=== PATIENT | female | born 1990 ===

== ENCOUNTER 2019-12-24 13:19 | Outpatient (REF) | payer OTHER, SELFPAY | END 2019-12-24 13:20 | disposition home or self-care (01) | LOC: HO.LAB 13:19 | PROVIDERS: Visit Provider Internal Medicine | DX: Z20.828 Contact with and (suspected) exposure to other viral communicable diseases (principal) | CPT/HCPCS: 87635 ==

== ENCOUNTER 2020-03-02 09:42 | Outpatient (REF) | payer OTHER, SELFPAY ==
[2020-03-07 10:18] LABS: HPV mRNA E6/E7 rflx Not Detected (Not Detected)
== END 2020-03-02 09:43 | disposition home or self-care (01) ==
LOC: HO.LNP 09:42
PROVIDERS: PCP Internal Medicine; Visit Provider Advanced Practice Midwife
DX: Z12.4 Encounter for screening for malignant neoplasm of cervix (principal)
CPT/HCPCS: 87624; 88142

== ENCOUNTER 2020-03-03 10:45 | Outpatient (REF) | payer OTHER, SELFPAY | END 2020-03-03 10:46 | disposition home or self-care (01) | LOC: HO.LAB 10:45 | PROVIDERS: Visit Provider Advanced Practice Midwife | DX: Z13.89 Encounter for screening for other disorder (principal) ==

== ENCOUNTER 2020-05-25 09:46 | Outpatient (REF) | payer OTHER, SELFPAY | END 2020-05-25 09:47 | disposition home or self-care (01) | LOC: HO.LAB 09:46 | PROVIDERS: Visit Provider Internal Medicine | DX: Z20.822 Contact with and (suspected) exposure to COVID-19 (principal) | CPT/HCPCS: 36415; C9803; U0003; U0005 ==

== ENCOUNTER 2020-05-30 10:57 | Emergency (ER) | payer OTHER, SELFPAY ==
[2020-05-30 11:08] VITALS: BP 118/72; PULSE 87; RESP 16; TEMP 37.5; O2SAT 100; BMI 26.9
--- NOTE | 2020-05-30 11:42 | ED.URI ---
HPI - URI/Sore Throat General Chief Complaint: Upper Respiratory Symptoms Stated Complaint: headache Time Seen by Provider: 05/30/20 11:26 Source: patient Mode of arrival: ambulatory Limitations: no limitations History of Present Illness HPI Narrative: 29-year-old female presenting To the ED with complaints of intermittent headaches, chills with sore throat and body aches for the past 2 days worse today. Reports positive COVID exposure her mother and her cousin who tested positive. Denies any other symptoms complaints or concerns at this time. MD elicited complaint: sore throat Onset (ago): day(s) (Two days) Consistency: constant and progressively worsening Severity: mild Able to tolerate fluids by mouth: Yes Exacerbating factors: swallowing Relieving factors: nothing Context: sick contacts (Her cousin tested positive for COVID on 05/28/2020 and her mother is also positive with similar symptoms) Associated symptoms: myalgias and headache Treatments prior to arrival: none Related Data Previous Rx's Medication Instructions Recorded acetaminophen [Tylenol Extra 1,000 mg PO QID PRN #14 tab 05/30/20 Strength] azithromycin See Rx Instructions .ROUTE 05/30/20 .COMPLEX #6 tab cyclobenzaprine 10 mg PO Q8H #10 tab 05/30/20 ibuprofen 800 mg PO Q8H PRN #14 tab 05/30/20 Allergies Allergy/AdvReac Type Severity Reaction Status Date / Time No Known Allergies Allergy Verified 03/02/20 10:12 Review of Systems Review of Systems: Constitutional : + Chills, + Malaise, No Fever, No fatigue ENT/Mouth : + sore throat, No runny nose Eyes: No Discharge Cardiovascular : No Chest Pain, No SOB Respiratory : No Cough, No Sputum, No Wheezing, No Smoke Exposure, No Dyspnea Gastrointestinal : No Nausea, No Vomiting, No Diarrhea Genitourinary : No irregular bleeding, No Dysuria, No Urinary Frequency, No Hematuria, No Urinary Incontinence, No Urgency, No Flank Pain, Musculoskeletal : No Myalgia, no neck pain/stiffness, no back pain/stiffness Skin : No rash Neuro : + intermittent Headache Yes all other systems are reviewed and are negative [facility] Past Medical History Attestation statement: The following information was validated with the patient. Medical History Urge urinary incontinence Surgical History No history of previous surgery Family History Family History Mother Thyroid disease Maternal Grandmother Diabetes mellitus HTN (hypertension) Breast cancer Social History Social History Alcohol intake: current Alcohol intake frequency: holidays/special occasions only Smoking Status: Never smoker Advance Directives: No Advance Directives Information Provided: No Gender identity: female Physical Exam Vital Signs: Vital Signs: Last Vital Signs Temp 99.5 F 05/30/20 11:08 Pulse 87 05/30/20 11:08 Resp 16 05/30/20 11:08 BP 118/72 05/30/20 11:08 Pulse Ox 100 05/30/20 11:08 Body Mass Index 26.9 Vital signs have been reviewed as normal and appeared to be correct. Blood pressure normal. Heart rate normal. Respiration rate normal. Temperature normal. Oxygen saturation normal. Appearance: Alert. Oriented X3. No acute distress. Head: Normal external exam. Normocephalic. Atraumatic. Able to rotate head bilaterally. Eyes: PERRLA. EOMI. No nystagmus noted. Conjunctiva and sclera normal. Eyelids normal. Corneal reflex normal. ENT: EAC normal. TM's Normal. Hearing normal. Pharynx normal. Uvula midline. tongue midline. Moist mucous membranes. No trismus noted. No drooling noted. No muffled voice noted. Neck: Normal inspection. Neck supple. FROM. No adenopathy. Thyroid Normal. No meningeal signs. No neck mass noted. CVS: Normal heart rate and rhythm. Heart sound normal. No murmurs noted. Pulses normal throughout. Respiratory: No respiratory distress. Painless inspiration. Breath sounds normal. No wheezes/rales/rhonchi noted. Chest nontender. No accessory muscle usage noted or decreased air movement noted. Back: Full range of motion noted. Skin: Skin warm and dry. Normal skin color. Normal skin turgor. No rashes/lesions/lacerations noted. Extremities: Extremities exhibit normal range of motion. Extremities nontender. Able to shrug shoulders bilaterally and keep up against resistance. Neuro: Oriented X 3. No motor deficit. No sensory deficit. Reflexes normal. Moving all extremities. No focal motor deficits. Cranial nerves II-XI intact bilaterally. Facial strength normal. Normal cognition. Speech normal. Gait normal. Strength 5/5 throughout. No pronator drift. No tremor noted. No fasciculations noted. Muscle tone normal throughout. No asterixis noted. Course Course Course Narrative: 29-year-old female presenting with COVID like symptoms with positive exposures at home. Denies recent travel or any other symptoms. Will obtain COVID/RSV/flu swab and a rapid strep then DC home with instructions to return if any new or worsening symptoms and symptomatic treatment. No additional labs or imaging indicated at this time Patient understands agrees with this plan. MDM - URI/Sore Throat Medical Records Attestation: I reviewed the patient's medical records. Discharge Plan Discharge Clinical Impression: Upper respiratory infection Patient Disposition: Home, Self-Care Instructions: Pharyngitis (ED), Upper Respiratory Infection (ED), COVID-19 (Coronavirus Disease 2019) (ED) Additional Instructions: Based on your symptoms and history we have sent a COVID-19. Although your RESULT IS PENDING at this time. RESULTS should return within 2-4 hours. At this time you will be contacted with either NEGATIVE OR POSITIVE results. -Please wait until we contact you for your results. At this time you will be okay for discharge. Please plan for self quarantine for up to 14 days. Do not expose yourself to others. You may not go to work. If testing does come back negative you may return to activities as long as you are no longer having any symptoms for at least 3 days. Please continue to follow cold instructions and wash your hands frequently. You may take Tylenol as directed on the bottle for pain or fever. Patient seen in the emergency department on 05/30/2020 and should be excused from work until negative test results AND until 72 hours without any symptoms AND at least 10 days have passed since symptoms first appeared or since last exposure to COVID-19 positive patient CDC Guidelines for home isolation: - Stay away from others - WEAR A MASK if you are sick AND STAY HOME - Cover your mouth and nose with a tissue when you cough or sneeze. Dispose of tissues in a lined trash can and wash your hands immediately with soap and water for at least 20 seconds. If soap and water are not available, clean hands with alcohol-based hand timber incisor operator that contains at least 60% alcohol. - Clean your hands often with soap and water for at least 20 seconds - Avoid touching your eyes, nose and mouth with unwashed hands - Do not share dishes, drinking glasses, cups, eating utensils, towels, or bedding with other people in your home. After using these items, wash them thoroughly with soap and water or put in the freezer machine operator. - Clean high-touch surfaces in your isolation area ( sick room and bathroom) every day; let a caregiver clean and disinfect high-touch surfaces in other areas of the home. Clean the area or item with soap and water or another detergent if it is dirty. Then, use a household disinfectant. - Limit contact with pets and animals: If you must care for a pet, wash your hands before and after interacting with them). Prescriptions: New azithromycin 250 mg tablet See Rx Instructions .ROUTE .COMPLEX Qty: 6 RF: 0 ibuprofen 800 mg tablet 800 mg PO Q8H PRN (Reason: pain) Qty: 14 RF: 0 acetaminophen [Tylenol Extra Strength] 500 mg tablet 1,000 mg PO QID PRN (Reason: fever or pain) Qty: 14 RF: 0 cyclobenzaprine 10 mg tablet 10 mg PO Q8H Qty: 10 RF: 0 Referrals: Kimberley Linares MD [Primary Care Provider] - 2 days Stand Alone Forms: Work/School Release Print Language: Bol[place]ian
[2020-05-30] MEDS: Acetaminophen 325 MG TABLET 975 MG PO (12:07)
--- NOTE | 2020-05-30 12:10 | PC.NURSE ---
patient medicated per order
[2020-05-30 12:28] LABS: Influenza A PCR NEGATIVE (Negative); Influenza B PCR NEGATIVE (Negative); Resp Syncy Virus RNA Qual PCR NEGATIVE (Negative); SARS COV2 PCR INHOUSE POSITIVE (Negative)
== END 2020-05-30 12:11 | disposition home or self-care (01) ==
PROVIDERS: Physician Assistant Medical; Emergency Provider Emergency Medicine; PCP Internal Medicine
DX: J06.9 Acute upper respiratory infection, unspecified (principal); R51.9 Headache, unspecified; M79.10 Myalgia, unspecified site; I10 Essential (primary) hypertension; Z20.822 Contact with and (suspected) exposure to COVID-19; Z79.899 Other long term (current) drug therapy
CPT/HCPCS: 0241U; 36415; 87071; 87880; 99283

== ENCOUNTER 2020-10-12 11:59 | Outpatient (REF) | payer OTHER, SELFPAY ==
[2020-10-12 13:17] LABS: MANUAL DIFF FLAG NO
[2020-10-12 13:23] LABS: Basophils Percent Auto 0.6 % (0-2); Eosinophils Absolute Auto 0.2 X10*3/uL (0.0-0.4); Hematocrit 37.7 % (37-47); Hemoglobin 12.1 g/dl (12.0-16.0); Imm Gran Abs Auto 0.02 X10*3/uL (0.00-0.03); Imm Gran Pct Auto 0.3 % (0.0-0.4); Lymphocytes Absolute Auto 1.5 X10*3/uL (1.2-4.9); Lymphocytes Percent Auto 21.4 % (20-40); Mean Corpuscular HGB Conc 32.1 g/dl (31.0-35.0); Mean Corpuscular Hemoglobin 27.4 pg (27.0-33.0); Mean Corpuscular Volume 85.5 fL (80-98); Mean Platelet Volume 11.5 fL (9.4-12.3); Monocytes Absolute Auto 0.5 X10*3/uL (0.1-1.2); Monocytes Percent Auto 6.5 % (2-11); Neutrophils Absolute Auto 4.8 X10*3/uL (2.0-8.3); Neutrophils Percent Auto 68.2 % (45-73); Platelet Count 249 X10*3/uL (160-400); Red Blood Count 4.41 X10*6/uL (4.20-5.50); Red Cell Distribution Width 13.3 % (11.0-16.0)
[2020-10-12 13:34] LABS: Glucose Urine UA NEG (NEG); Leukocyte Esterase Urine NEG (NEG); Nitrite Urine NEG (NEG); Specific Gravity - Urine 1.015 (1.005-1.025); UACC Culture Trigger NO; Urine Blood 3+ (NEG); Urine Ketones NEG (NEG); Urine Protein 1+ MG/DL (NEG-TRACE)
[2020-10-12 13:41] LABS: Appearance Urine CLOUDY; Color Urine PINK
[2020-10-12 13:49] LABS: WBC Urine 0 /HPF (0-4)
[2020-10-12 13:50] LABS: Amorphous Sediment Urine 1+ /LPF; RBC Urine TNTC /HPF (0)
[2020-10-12 13:54] LABS: Alanine Aminotransferase 12 U/L (0-31); Albumin Level 4.2 g/dL (3.5-5.0); Alkaline Phosphatase 79 U/L (39-117); Anion Gap 13 (12-20); Aspartate Amino Transferase 16 U/L (5-31); Bilirubin Total 0.2 mg/dL (0.0-1.0); Blood Urea Nitrogen 7 mg/dL (9-16); Calcium 9.2 mg/dL (8.4-10.2); Carbon Dioxide 25 mmol/L (22-29); Chloride 107 mmol/L (96-108); Cholesterol 128 mg/dL; Estimated Glomerular Filt Rate > 60; Glucose Fasting 88 mg/dL (60-99); HDL Cholesterol 42 mg/dL; LDL Cholesterol Calculated 71 mg/dl; Potassium 4.5 mmol/L (3.3-5.1); Sodium 140 mmol/L (135-145); Total Protein 6.7 g/dL (6.5-8.0); Triglycerides 75 mg/dL
[2020-10-12 14:18] LABS: TSH reflex Free T4 0.92 uIU/mL (0.32-4.0); Vitamin D 25-OH Total 23.4 ng/mL (>30)
== END 2020-10-12 12:00 | disposition home or self-care (01) ==
LOC: HO.LAB 11:59
PROVIDERS: PCP Internal Medicine; Visit Provider Internal Medicine
DX: Z00.00 Encounter for general adult medical examination without abnormal findings (principal); E66.3 Overweight; E55.9 Vitamin D deficiency, unspecified
CPT/HCPCS: 36415; 80053; 80061; 81001; 82306; 84443; 85025

== ENCOUNTER 2021-01-01 12:29 | Outpatient (REF) | payer OTHER, SELFPAY ==
--- NOTE | ~2021-01-01 | XR_ITS ---
EXAMINATION: XR ANKLE, RIGHT XR FOOT, RIGHT CLINICAL INFORMATION: Pain COMPARISON: None TECHNIQUE: 3 views of the right foot. 2 additional views of the right ankle. FINDINGS: Right foot: No fracture or dislocation. Alignment is anatomic. Joint spaces are maintained. The soft tissues are unremarkable. Right ankle: No fracture or dislocation. No ankle joint effusion. The ankle mortise is congruent. Mild lateral soft tissue swelling. XR/XR foot RT min 3V IMPRESSION: Mild lateral soft tissue swelling at the ankle without acute osseous abnormality.
--- NOTE | ~2021-01-01 | XR_ITS ---
EXAMINATION: XR ANKLE, RIGHT XR FOOT, RIGHT CLINICAL INFORMATION: Pain COMPARISON: None TECHNIQUE: 3 views of the right foot. 2 additional views of the right ankle. FINDINGS: Right foot: No fracture or dislocation. Alignment is anatomic. Joint spaces are maintained. The soft tissues are unremarkable. Right ankle: No fracture or dislocation. No ankle joint effusion. The ankle mortise is congruent. Mild lateral soft tissue swelling. XR/XR ankle RT min 3V IMPRESSION: Mild lateral soft tissue swelling at the ankle without acute osseous abnormality.
== END 2021-01-01 12:30 | disposition home or self-care (01) ==
LOC: HO.XRAY 12:29
PROVIDERS: PCP Internal Medicine; Visit Provider Nurse Practitioner Family
DX: G89.29 Other chronic pain (principal); M25.571 Pain in right ankle and joints of right foot
CPT/HCPCS: 73610; 73630

== ENCOUNTER 2021-03-17 09:50 | Outpatient (REF) | payer OTHER, SELFPAY ==
--- NOTE | ~2021-03-17 | MM_ITS ---
EXAMINATION: MM DIAGNOSTIC DIGITAL BREAST TOMOSYNTHESIS, BILATERAL US DIAGNOSTIC ULTRASOUND BREAST, LEFT CLINICAL INFORMATION: 3 week history oblong palpable fullness anterior 12:00 left breast noted by patient. No discharge. No family history breast cancer. Prior history contralateral benign right breast biopsy 01/15/2018 (benign breast tissue with stromal fibrosis, sclerosing adenosis, and focal usual ductal hyperplasia). The lifetime risk of breast cancer based on the Tyrer-Cuzick Model is 8%. COMPARISON: Unilateral right mammography 08/01/2018, 01/15/2018. TECHNIQUE: Digital breast tomosynthesis is performed in both the craniocaudal and mediolateral oblique views along with computer-aided detection (CAD). Synthesized 2D images are generated from the tomosynthesis. Ultrasound left breast is targeted to the area of clinical concern anterior upper breast. Patient is able to point to the area of concern at time of imaging. Grayscale imaging and color Doppler are performed without and with harmonics. FINDINGS: The breasts are extremely dense, which lowers the sensitivity of mammography (ACR BI-RADS breast composition Category d). There are no significant masses, abnormal calcifications, or other abnormalities. Incidental biopsy clip marker again noted right breast mid upper outer quadrant. The axilla and skin contours are unremarkable. Ultrasound demonstrates small cyst 2:00 position 5 cm from nipple measuring 0.6 x 0.3 cm, outside area of palpable concern. There is no solid mass or architectural abnormality. No focal duct ectasia. Results are discussed with the patient at time of visit. Patient should be managed based on the clinical impression. If clinically indicated, further evaluation may be considered with surgical consult. Decision to proceed with biopsy should be based on clinical grounds and degree of clinical concern. MM/MM tomosynthesis diagnostic BI IMPRESSION: 1. No mammographic evidence of malignancy. 2. Small simple cyst 6 x 3 mm mid 2:00 position, outside area of palpable concern. ASSESSMENT: BI-RADS 2: Benign RECOMMENDATION: 1. Patient should be managed based on the clinical impression. If clinically indicated, further evaluation may be considered with surgical consult. Decision to proceed with biopsy should be based on clinical grounds and degree of clinical concern. 2. Otherwise, routine annual screening mammography, beginning age 40, or earlier as clinical risk factors warrant. This patient's information was entered into a reminder system with a target due date for their next mammogram.
== END 2021-03-17 09:51 | disposition home or self-care (01) ==
LOC: HO.MAMMO 09:50
PROVIDERS: Visit Provider Nurse Practitioner Family
DX: N63.20 Unspecified lump in the left breast, unspecified quadrant (principal); N60.02 Solitary cyst of left breast
CPT/HCPCS: 76642; 77062; 77066

== ENCOUNTER 2021-03-24 13:46 | Outpatient (REF) | payer OTHER, SELFPAY ==
[2021-03-25 07:25] LABS: CT PCR NOT DETECTED (Not Detect.); NG PCR NOT DETECTED (Not Detect.)
[2021-03-25 12:15] LABS: BV Int Neg Control Negative (Negative); BV Int Pos Control Positive (Positive)
== END 2021-03-24 13:47 | disposition home or self-care (01) ==
LOC: HO.LAB 13:46
PROVIDERS: PCP Internal Medicine; Visit Provider Advanced Practice Midwife
DX: Z31.9 Encounter for procreative management, unspecified (principal); Z20.2 Contact with and (suspected) exposure to infections with a predominantly sexual mode of transmission
CPT/HCPCS: 87480; 87491; 87510; 87591; 87660

== ENCOUNTER → 2021-05-13 10:07 | Outpatient (BNVA) | payer OTHER, SELFPAY | PROVIDERS: PCP Internal Medicine; Referring Provider Internal Medicine; Visit Provider Surgery | DX: N60.19 Diffuse cystic mastopathy of unspecified breast (principal) | CPT/HCPCS: 99202 ==

== ENCOUNTER 2021-06-15 10:27 | Outpatient (REF) | payer OTHER, SELFPAY ==
--- NOTE | ~2021-06-15 | US_ITS ---
EXAMINATION: ULTRASOUND PELVIC, COMPLETE CLINICAL INFORMATION: Pelvic and perineal pain. Quantitative hCG 434 COMPARISON: None. TECHNIQUE: Transvaginal: Used to better visualize pelvic structures Transabdominal: Not adequate for visualization Spectral Doppler and color Doppler exam was utilized. LMP: 05/22/2021. Gestational age by LMP 3 weeks 3 days. RK 02/26/2022 FINDINGS: UTERUS: Endometrial thickness measures 1.7 cm. Trace fluid in the endometrial cavity but there is no intrauterine gestational sac. No pole or yolk sac. ADNEXA: Ovarian vascularity:Doppler demonstrates both arterial and venous vascular flow in the right and left ovary. No evidence of ovarian torsion. Right Ovary: 4.3 x 2.5 x 3.1 cm. Right ovarian anechoic cyst/follicle measuring 1.7 x 1.8 x 1.9 cm. Left Ovary: 2.8 x 1.3 x 1.7 cm Cul-de-sac: Small to moderate volume of fluid in the cul-de-sac. US/US OB pelvic and transvaginal IMPRESSION: 1. No intrauterine gestational sac. Trace fluid in the endometrial cavity. No adnexal abnormality. Findings may be due to early . Ectopic cannot be excluded at this time. Recommend continued surveillance with serial beta-hCG levels and follow-up pelvic ultrasound in 2-3 weeks. This result was discussed by radiography technician with [facility]ly Brown's emergency medicine medical director, on 1315 hours on 06/15/2021 and it was ascertained that the content and urgency of the report was understood at the time of direct communication.
[2021-06-15 12:50] LABS: HCG Quantitative 434 mIU/mL
[2021-06-15 18:15] LABS: CT PCR NOT DETECTED (Not Detect.); NG PCR NOT DETECTED (Not Detect.)
[2021-06-16 12:08] LABS: BV Int Neg Control Negative (Negative); BV Int Pos Control Positive (Positive)
== END 2021-06-15 10:28 | disposition home or self-care (01) ==
LOC: HO.LAB 10:27
PROVIDERS: Absent Provider Advanced Practice Midwife; PCP Internal Medicine; Visit Provider Advanced Practice Midwife
DX: O20.0 Threatened abortion (principal)
CPT/HCPCS: 36415; 76801; 76817; 81025; 84702; 87480; 87491; 87510; 87591; 87660; 99212

== ENCOUNTER 2021-06-17 10:15 | Outpatient (REF) | payer OTHER, SELFPAY ==
[2021-06-17 11:55] LABS: HCG Quantitative 748 mIU/mL
== END 2021-06-17 10:16 | disposition home or self-care (01) ==
LOC: HO.LAB 10:15
PROVIDERS: PCP Internal Medicine; Visit Provider Advanced Practice Midwife
DX: O20.0 Threatened abortion (principal)
CPT/HCPCS: 36415; 84702

== ENCOUNTER 2021-06-19 09:48 | Outpatient (REF) | payer OTHER, SELFPAY ==
[2021-06-19 11:52] LABS: HCG Quantitative 1670 mIU/mL
== END 2021-06-19 09:49 | disposition home or self-care (01) ==
LOC: HO.LAB 09:48
PROVIDERS: Visit Provider Advanced Practice Midwife
DX: O20.0 Threatened abortion (principal)
CPT/HCPCS: 36415; 84702

== ENCOUNTER → 2021-06-22 07:59 | Outpatient (BNVA) | payer OTHER, SELFPAY | PROVIDERS: PCP Internal Medicine; Visit Provider Advanced Practice Midwife | DX: Z71.2 Person consulting for explanation of examination or test findings (principal); Z34.90 Encounter for supervision of normal pregnancy, unspecified, unspecified trimester | CPT/HCPCS: 99212 ==

== ENCOUNTER 2021-06-25 08:36 | Outpatient (REF) | payer OTHER, SELFPAY ==
--- NOTE | ~2021-06-25 | US_ITS ---
EXAMINATION: OBSTETRICAL ULTRASOUND, FIRST TRIMESTER HISTORY: 30-year-old with the history of vaginal spotting. Viability LMP: 05/22/2021 COMPARISON: 06/15/2021 TECHNIQUE: Real time transabdominal imaging with color and M-mode Doppler. FINDINGS: A single, intrauterine gestational sac with mean sac diameter of 1.13 corresponding to 5 week 6 days is noted. No embryonic pole was seen but the yolk sac appear normal. Both maternal ovaries are seen and appear normal. No free fluid in the cul-de-sac. GESTATIONAL AGE: 1. GA from LMP: 4.6 wks 2. GA from AUA: 5.6 wks ESTIMATED DATE OF DELIVERY: 1. RK from LMP: 02/26/2022 2. RK from AUA: 02/19/2022 US/US OB pelvic and transvaginal IMPRESSION: 1. A single intrauterine gestational sac with normal appearing yolk sac. 2. Embryonic pole is not yet visible. However this can be consistent with the early gestational age. 3. Normal ovaries 4. No free fluid in the cul-de-sac Given the 7 day discrepancy between the LMP based GA and AUA today, recommend adjusting her RK to 02/19/2022. In the setting of normally rising serum beta hCG, today's findings are consistent with a normal, early . Suggest the clinical correlation and follow-up evaluation in one to 2 weeks. She is no longer spotting. This note was generated with a voice recognition program. Please excuse any errors which may have been overlooked during my review of this note. Sometimes these errors may affect the content or meaning of a given sentence.
== END 2021-06-25 08:37 | disposition home or self-care (01) ==
LOC: HO.US 08:36
PROVIDERS: Visit Provider Advanced Practice Midwife
DX: O26.851 Spotting complicating pregnancy, first trimester (principal); Z3A.01 Less than 8 weeks gestation of pregnancy
CPT/HCPCS: 76801; 76817

== ENCOUNTER → 2021-07-05 11:35 | Outpatient (BNVA) | payer OTHER, SELFPAY | PROVIDERS: PCP Internal Medicine; Visit Provider Advanced Practice Midwife | DX: Z13.89 Encounter for screening for other disorder (principal) ==

== ENCOUNTER 2021-07-07 10:35 | Outpatient (REF) | payer OTHER, SELFPAY ==
--- NOTE | ~2021-07-07 | US_ITS ---
EXAMINATION: US OBSTETRICAL ULTRASOUND CLINICAL INFORMATION: Close follow-up in early COMPARISON: June 25, 2021 and June 15, 2021. LMP: May 22, 2021. Gestational age by maternal dates is 6 weeks 4 days. Estimated date of delivery by maternal dates is February 26, 2022. TECHNIQUE: OB ultrasound FINDINGS: There is a single intrauterine gestational sac with visible yolk sac, embryo/fetus, and cardiac activity. There is no significant subchorionic hemorrhage or hematoma. HR: 143 beats per minute. CRL (crown rump length): 1.21 cm (7 weeks 3 days +/- 4 days). RK (estimated date of delivery): February 20, 2022 +/- 4 days. MATERNAL ADNEXA: The right maternal ovary measures 4.7 x 3.1 x 2.8 cm. There is a 2.5 x 2.0 x 2.0 cm heterogeneous mainly cystic region likely representing a corpus luteum. The left maternal ovary measures 2.3 x 2.0 x 1.7 cm. No significant abnormality identified. There is no significant maternal adnexal mass. There is trace free fluid seen within the cul-de-sac. US/US OB <= 14 weeks fetus IMPRESSION: 1. Single intrauterine gestation with ultrasound gestational age of 7 weeks 3 days +/- 4 days. 2. Estimated date of delivery is February 20, 2022 +/- 4 days. 3. No maternal adnexal mass or significant pelvic ascites.
== END 2021-07-07 10:36 | disposition home or self-care (01) ==
LOC: HO.US 10:35
PROVIDERS: Visit Provider Advanced Practice Midwife
DX: O20.0 Threatened abortion (principal); Z3A.01 Less than 8 weeks gestation of pregnancy
CPT/HCPCS: 76801

== ENCOUNTER → 2021-07-15 10:02 | Outpatient (BNVA) | payer OTHER, SELFPAY | PROVIDERS: PCP Internal Medicine; Referring Provider Internal Medicine; Visit Provider Surgery | DX: N60.12 Diffuse cystic mastopathy of left breast (principal) | CPT/HCPCS: 99212 ==

== ENCOUNTER 2021-08-04 09:43 | Outpatient (REF) | payer OTHER, SELFPAY ==
[2021-08-04 12:35] LABS: Hemoglobin 11.5 g/dl (12.0-16.0); Mean Corpuscular HGB Conc 32.9 g/dl (31.0-35.0); Mean Corpuscular Hemoglobin 27.6 pg (27.0-33.0); Mean Corpuscular Volume 84.1 fL (80.0-98.0); Mean Platelet Volume 10.7 fL (9.4-12.3); Platelet Count 239 X10*3/uL (160-400); Red Blood Count 4.16 X10*6/uL (4.20-5.50); Red Cell Distribution Width 13.3 % (11.0-16.0)
[2021-08-04 12:49] LABS: Glucose 1 Hour PP 50gm Dose 130 mg/dL (60-140)
[2021-08-04 13:49] LABS: Syphilis Screen Nonreactive (Nonreactive)
[2021-08-04 14:50] LABS: Amphetamine Screen Urine Not Detected (Not Detect); Barbiturates, Urine Not Detected (Not Detect); Benzodiazepines Screen Urine Not Detected (Not Detect); Cannabinoid Screen Urine Not Detected (Not Detect); Cocaine Screen Urine Not Detected (Not Detect); Fentanyl, urine Not Detected (Not Detect); Opiate Screen Urine Not Detected (Not Detect); Phencyclidine Screen Urine Not Detected (Not Detect)
[2021-08-05 08:10] LABS: HBsAGNum1 0.24 S/CO (0.00-0.99); HIV AB/AG Nonreactive (Nonreactive); HIV Num 1 0.09 S/CO (0.00-0.99); Hepatitis B Surface Antigen Negative (Negative); ~HepC Num1 0.11 S/CO (0.00-0.79); ~Hepatitis C Antibody Nonreactive (Nonreactive)
[2021-08-06 08:47] LABS: Rubella IgG Antibody 3.36 Index
== END 2021-08-04 09:44 | disposition home or self-care (01) ==
LOC: HO.LAB 09:43
PROVIDERS: PCP Internal Medicine; Visit Provider Advanced Practice Midwife
DX: Z34.91 Encounter for supervision of normal pregnancy, unspecified, first trimester (principal)
CPT/HCPCS: 80307; 85027; 86762; 86780; 86787; 86803; 86850; 86900; 86901; 87086; 87340; 87389; 99212

== ENCOUNTER 2021-08-20 08:57 | Outpatient (REF) | payer OTHER, SELFPAY ==
--- NOTE | ~2021-08-20 | US_ITS ---
EXAMINATION: OBSTETRICAL ULTRASOUND, FIRST TRIMESTER HISTORY: 31-year-old at the 13.5 weeks of gestation NT screening COMPARISON: 07/07/2021 TECHNIQUE: Real time transabdominal imaging with color and M-mode Doppler. FINDINGS: A single, live IUP CRL of 79.2 mm c/w 14.0wks is noted. Heart Rate: 147 beats per minute. Normal yolk sac seen. NT was 2.63.mm. NB Present The embryo appears sonographically wnl for this GA. Right ovary is within normal limits. The left ovary could not be seen. GESTATIONAL AGE: 1. Established GA: 13.5 wks 2. GA from AUA: 14.0 wks ESTIMATED DATE OF DELIVERY: 1. Established RK: 02/20/2022 2. RK from AUA: 02/18/2022 US/US OB 1T nuc measure IMPRESSION: 1. A single live IUP 2. Size equals dates 3. NT of 2.63 mm MFM Consultation: I reviewed the ultrasound findings along with significance of NT measurement. The NT of less than 3mm is generally reassuring. However, the sensitivity for T21 detection is only 60%. I reviewed the availability of serum aneuploidy screening which includes cell-free DNA and placental protein based tests. I discussed the sensitivity, false-positive rate, and other limitations associated with each test. I also reviewed the availability of invasive diagnostic tests that are associated small but definite risk of miscarriage. We also reviewed the differences between screening tests and diagnostic tests. After our discussion, she opted for the First trimester screening that is based on cell-free DNA or non-invasive testing (NIPT). The result will be faxed to your office in approximately 7 days. A follow up at 18 weeks for survey has been scheduled. Thank you very much for this referral. Total time 20 minutes. The time spent was devoted to counseling the patient about the disease and diagnosis, coordinating care including reviewing her records, pertinent lab data and studies, as well as discussing diagnostic evaluation and workup, plan therapeutic interventions and future disposition of care. This includes any additional research needed to obtain further information in formulating the plan of care of this patient. This note was generated with a voice recognition program. Please excuse any errors which may have been overlooked during my review of this note. Sometimes these errors may affect the content or meaning of a given sentence.
== END 2021-08-20 08:58 | disposition home or self-care (01) ==
LOC: HO.US 08:57
PROVIDERS: Visit Provider Advanced Practice Midwife
DX: Z36.82 Encounter for antenatal screening for nuchal translucency (principal); Z3A.13 13 weeks gestation of pregnancy
CPT/HCPCS: 76813

== ENCOUNTER 2021-09-10 09:50 | Outpatient (REF) | payer OTHER, SELFPAY ==
[2021-09-10 13:51] LABS: CT PCR NOT DETECTED (Not Detect.); NG PCR NOT DETECTED (Not Detect.)
[2021-09-11 11:27] LABS: BV Int Neg Control Negative (Negative); BV Int Pos Control Positive (Positive)
[2021-09-16 18:21] LABS: HPV mRNA E6/E7 rflx Not Detected (Not Detected)
== END 2021-09-10 09:51 | disposition home or self-care (01) ==
LOC: HO.LAB 09:50
PROVIDERS: PCP Internal Medicine; Visit Provider Advanced Practice Midwife
DX: Z34.92 Encounter for supervision of normal pregnancy, unspecified, second trimester (principal); Z3A.16 16 weeks gestation of pregnancy
CPT/HCPCS: 81003; 87480; 87491; 87510; 87591; 87624; 87660; 88142; 99212

== ENCOUNTER 2021-09-24 08:46 | Outpatient (REF) | payer OTHER, SELFPAY ==
--- NOTE | ~2021-09-24 | US_ITS ---
EXAMINATION: US OBSTETRICAL CLINICAL INFORMATION: 31-year-old at 18.5 weeks of gestation Screening for anomaly COMPARISON: 08/20/2021 TECHNIQUE: Real-time transabdominal ultrasound was performed using C1-5 megahertz transducer. FINDINGS: A single, active, fetus is seen in transverse presentation. The placenta is anterior without previa, and the amniotic fluid volume is wnl. MEASUREMENTS: 1. Biparietal Diameter: 4.4 cm; 19.3 wks 2. Occipital Frontal Diameter: 6.0 cm 3. Head Circumference: 16.8 cm; 19.4 wks 4. Abdominal Circumference: 13.7 cm; 19.1 wks 5. Femur Length: 2.9 cm; 19.0 wks 6. Humerus Length: 2.95 cm; 19.5 wks 7. Tibia Length: 2.6 cm; 19.2 wks 8. Ulna Length: 2.6 cm; 19.2 wks 9. Lateral ventricle: 0.61 cm 10. Cerebellum: 1.96 cm; 20.1 wks 11. Cisterna Magna: 0.43 cm 12. Nuchal Fold: 5.4 mm 13. Heart Rate: 144 beats per minute Rt ovary: normal Lt ovary: normal Cervical length 3.8 cm on T/A. GESTATIONAL AGE: 1. Established GA: 18.5 wks 2. GA from [facility]: 19.2 wks ESTIMATED DATE OF DELIVERY: 1. Established RK: 02/20/2022 2. RK from [facility]: 02/16/2022 ANATOMY: The visualized anatomy includes but not limited to: 1. Cranium: Normal 2. Intracranial anatomy: cavum septum pellucidi, lateral ventricles, choroid plexus, cerebellum, posterior fossa, third and fourth ventricles. 3. face: orbits, lip/palate, profile, nasal bone 4. Heart: four-chamber view of the heart, ventricular septum, foramen ovale, pulmonary vein, left and right outflow tracts, three-vessel view, 3 vessel trachea view, aortic and ductal arches, situs.. 5. Diaphragm: Normal 6. Abdominal wall: Normal 7. Cord Insertion: Normal 8. Spine: Cervical, thoracic, lumbar, sacral. 9. Stomach: Normal size and shape 10. Right Kidney: Normal 11. Left Kidney: Normal 12. 3 vessel cord: Normal 13. Upper extremity: Open hands, fifth digit. 14. Lower extremity: Tibia, fibula, bilateral feet. 15. Bladder: Normal 16. Genitalia: Male, patient aware US/US OB /maternal detail IMPRESSION: 1. Single, living, intrauterine with appropriate biometry. 2. Normal survey DISCUSSION: I reviewed today's ultrasound findings. We discussed the limitations of ultrasound in diagnosing aneuploidy and other congenital abnormalities. I reviewed the differences between screening test and diagnostic test. Amniocentesis was discussed and declined. She was informed that the baseline incidence of congenital abnormalities is approximately 3-5%. Not all these conditions are diagnosable in utero. RECOMMENDATIONS: 1. Please follow up as clinically indicated. Thank you for allowing me to participate in her care. This note was generated with a voice recognition program. Please excuse any errors which may have been overlooked during my review of this note. Sometimes these errors may affect the content or meaning of a given sentence.
== END 2021-09-24 08:47 | disposition home or self-care (01) ==
LOC: HO.US 08:46
PROVIDERS: Visit Provider Advanced Practice Midwife
DX: Z34.92 Encounter for supervision of normal pregnancy, unspecified, second trimester (principal); Z36.3 Encounter for antenatal screening for malformations; Z3A.18 18 weeks gestation of pregnancy
CPT/HCPCS: 76811

== ENCOUNTER → 2021-10-08 10:50 | Outpatient (BNVA) | payer OTHER, SELFPAY | PROVIDERS: PCP Internal Medicine; Visit Provider Advanced Practice Midwife | DX: Z34.82 Encounter for supervision of other normal pregnancy, second trimester (principal); Z3A.20 20 weeks gestation of pregnancy | CPT/HCPCS: 99212 ==

== ENCOUNTER 2021-11-09 11:08 | Outpatient (REF) | payer OTHER, SELFPAY ==
[2021-11-09 12:34] LABS: Alanine Aminotransferase 12 U/L (0-31); Albumin Level 3.7 g/dL (3.5-5.0); Alkaline Phosphatase 87 U/L (39-117); Anion Gap 13 (12-20); Aspartate Amino Transferase 16 U/L (5-31); Blood Urea Nitrogen 8 mg/dL (9-16); Calcium 8.6 mg/dL (8.4-10.2); Carbon Dioxide 21 mmol/L (22-29); Chloride 107 mmol/L (96-108); Estimated Glomerular Filt Rate > 60; Glucose Random 86 mg/dL (60-115); Potassium 4.1 mmol/L (3.3-5.1); Sodium 137 mmol/L (135-145); Total Protein 6.5 g/dL (6.5-8.0)
[2021-11-09 12:40] LABS: TSH reflex Free T4 1.84 uIU/mL (0.32-4.0); Vitamin D 25-OH Total 45.6 ng/mL (>30)
[2021-11-09 12:49] LABS: Folate 18.8 ng/mL (> or = 4.0); Vitamin B12 383 pg/mL (200-900)
[2021-11-09 12:51] LABS: Bilirubin Total < 0.2 mg/dL (0.0-1.0)
== END 2021-11-09 11:09 | disposition home or self-care (01) ==
LOC: HO.LAB 11:08
PROVIDERS: PCP Internal Medicine; Visit Provider Nurse Practitioner Family
DX: Z34.92 Encounter for supervision of normal pregnancy, unspecified, second trimester (principal); Z3A.25 25 weeks gestation of pregnancy
CPT/HCPCS: 36415; 80053; 82306; 82607; 82746; 84443; 99212

== ENCOUNTER 2021-11-15 09:51 | Outpatient (REF) | payer OTHER, SELFPAY ==
[2021-11-15 10:44] LABS: COVID-19 Test Positive (Negative); IDNOW Serial# 9DB6401D
== END 2021-11-15 09:52 | disposition home or self-care (01) ==
LOC: HO.LAB 09:51
PROVIDERS: Visit Provider Internal Medicine
DX: Z20.822 Contact with and (suspected) exposure to COVID-19 (principal)
CPT/HCPCS: 87635; C9803

== ENCOUNTER 2021-12-06 09:12 | Outpatient (REF) | payer OTHER, SELFPAY ==
[2021-12-06 11:45] LABS: Hematocrit 32.5 % (37.0-47.0); Hemoglobin 10.6 g/dl (12.0-16.0); Mean Corpuscular HGB Conc 32.6 g/dl (31.0-35.0); Mean Corpuscular Hemoglobin 27.6 pg (27.0-33.0); Mean Corpuscular Volume 84.6 fL (80.0-98.0); Mean Platelet Volume 11.2 fL (9.4-12.3); Platelet Count 198 X10*3/uL (160-400); Red Blood Count 3.84 X10*6/uL (4.20-5.50)
[2021-12-06 12:13] LABS: Glucose 1 Hour PP 50gm Dose 144 mg/dL (60-140)
[2021-12-06 12:44] LABS: Syphilis Screen Nonreactive (Nonreactive)
== END 2021-12-06 09:13 | disposition home or self-care (01) ==
LOC: HO.LAB 09:12
PROVIDERS: PCP Internal Medicine; Visit Provider Advanced Practice Midwife
DX: Z34.92 Encounter for supervision of normal pregnancy, unspecified, second trimester (principal)
CPT/HCPCS: 36415; 82950; 85027; 86780

== ENCOUNTER 2021-12-08 09:17 | Outpatient (REF) | payer OTHER, SELFPAY ==
[2021-12-08 11:54] LABS: Glucose Fasting 75 mg/dL (60-99)
[2021-12-08 12:25] LABS: Glucose 1 Hour 144 mg/dL
[2021-12-08 13:49] LABS: Glucose 2 Hour 131 mg/dL
[2021-12-08 14:51] LABS: Glucose 3 Hour 114 mg/dL
== END 2021-12-08 09:18 | disposition home or self-care (01) ==
LOC: HO.LAB 09:17
PROVIDERS: Visit Provider Advanced Practice Midwife
DX: O99.810 Abnormal glucose complicating pregnancy (principal); Z3A.29 29 weeks gestation of pregnancy
CPT/HCPCS: 36415; 81003; 82951; 99212

== ENCOUNTER → 2021-12-22 12:50 | Outpatient (BNVA) | payer OTHER, SELFPAY | PROVIDERS: PCP Internal Medicine; Visit Provider Advanced Practice Midwife | DX: Z34.93 Encounter for supervision of normal pregnancy, unspecified, third trimester (principal); Z3A.31 31 weeks gestation of pregnancy | CPT/HCPCS: 81003; 99212 ==

== ENCOUNTER → 2022-01-06 11:13 | Outpatient (BNVA) | payer OTHER, SELFPAY | PROVIDERS: PCP Internal Medicine; Visit Provider Advanced Practice Midwife | DX: Z23 Encounter for immunization (principal); Z34.83 Encounter for supervision of other normal pregnancy, third trimester; Z3A.33 33 weeks gestation of pregnancy | CPT/HCPCS: 90471; 90715; 99212 ==

== ENCOUNTER 2022-01-24 16:39 | Emergency (ER) | payer OTHER, SELFPAY ==
[2022-01-24 16:56] VITALS: BP 127/76; PULSE 110; RESP 20; TEMP 39.2; O2SAT 97; BMI 32.7
--- NOTE | 2022-01-24 17:13 | ED_ITS ---
HPI - URI/Sore Throat General Chief Complaint: Upper Respiratory Symptoms Stated Complaint: sinus pressure h/a,coughing Time Seen by Provider: 01/24/22 17:20 Source: patient Mode of arrival: ambulatory Limitations: no limitations History of Present Illness HPI Narrative: 31 year old female at 38 weeks presents to the ER with one day of cough coryza and runny nose. She denies sick contacts she is vaccinated for covid. She denies chest pain she does have a cough as well. Patient states symptoms all started today will follow up with her OB tomorrow. MD elicited complaint: fever, cough, sore throat, rhinorrhea, nasal congestion and sinus pain Related Data Previous Rx's Medication Instructions Recorded vitamin with calcium 1 tab PO DAILY #30 tabs 06/16/21 no.72-iron 27 mg-folic acid 1 mg tablet ( Vitamins Plus Low Iron) ferrous sulfate 325 mg (65 mg 325 mg PO BID #60 tabs 12/07/21 iron) tablet Allergies Allergy/AdvReac Type Severity Reaction Status Date / Time No Known Allergies Allergy Verified 01/06/22 11:36 Review of Systems Review of Systems: Review of systems: General: fever Patient denies any chills recent illness or falls Musculoskeletal: body achesDenies back pain or or other injuries HEENT: headache, runny nose, no ear pain Respiratory: cough denies shortness of breath, Cardiovascular: no chest pain or palpitations : denies dysuria, frequency Abdomen: no nausea vomiting denies abdominal pain Extremities: no swelling, no pain Skin: no diaphoresis Yes all other systems are reviewed and are negative [facility] Past Medical History Attestation statement: The following information was validated with the patient. Medical History Overweight (BMI 25.0-29.9) Threatened Urge urinary incontinence Surgical History No history of previous surgery Family History Family History Mother Thyroid disease Maternal Grandmother Diabetes mellitus HTN (hypertension) Breast cancer Social History Social History Housing: Apartment Alcohol intake: current Alcohol intake frequency: holidays/special occasions only Patient Tobacco Use Status: Former Tobacco user e-Cigarette/Vaping Use: Never Used Second Hand Smoke Exposure: Yes Advance Directives: No Advance Directives Information Provided: Yes service: No Current occupational status: employed Gender identity: Female Cognitive needs: No Hearing needs: No Vision needs: Yes Physical Exam Vital Signs: Vital Signs: Last Vital Signs Temp 102.5 F H 01/24/22 16:56 Pulse 110 H 01/24/22 16:56 Resp 20 01/24/22 16:56 BP 127/76 01/24/22 16:56 Pulse Ox 97 01/24/22 16:56 O2 Del Method 01/24/22 16:56 BMI result Body Mass Index 32.7 General: Well-appearing well-nourished in no signs of distress HEENT: Normocephalic atraumatic normal TM's throat is clear Neck: No signs of JVD, no masses no tenderness or lymphadenopathy Cardiovascular: Regular rate and rhythm Respiratory: Clear to auscultation bilaterally Abdomen: Soft nontender no masses rectal exam performed guiac negative 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 Extremities: Normal pedal pulses no signs of edema Skin: Dry warm no rashes Back: No tenderness full ROM Course Course Course Narrative: 31 year old female 38 weeks Medications Administered Discontinued Medications Generic Name Dose Route Start Last Admin Trade Name Shay PRN Reason Stop Dose Admin Acetaminophen 650 mg 01/24/22 17:13 01/24/22 17:16 Acetaminophen 325 Mg Tablet PO 01/24/22 17:14 650 mg ONCE ONE Administration MDM - URI/Sore Throat MDM Narrative Medical decision making narrative: I will get swabs for covid rsv and flu. I will treat with tessalon perles and tylenol. She is not toxic in appearance I don't think she can use afrin for congestion this late in she is agreeble to try nasal rinses at home tylenol and tessalon perles. While she likely has mild sinusitis her symptoms have only been for one day and she is not toxic antibiotics are not indicated. Swabs show the patient has RSV I still feel comfortable sending home has follow up with OB. Differential Diagnosis Differential diagnosis: Likely upper respiratory infection, sinusitis, viral infection, influenza and pharyngitis Medical Records Attestation: I reviewed the patient's medical records. Lab Data Labs: Lab Results 01/24/22 Range/Units 17:03 Influenza Type A (PCR) NEGATIVE (Negative) Influenza Type B (PCR) NEGATIVE (Negative) RSV RNA Qual (PCR) POSITIVE A (Negative) SARS-CoV-2 RNA (RT-PCR) NEGATIVE (Negative) Discharge Plan Discharge Clinical Impression: Cough, Upper respiratory infection Patient Disposition: Home, Self-Care Instructions: Upper Respiratory Infection (ED), Viral Syndrome (ED), Acute Cough (ED) Additional Instructions: Please try sinus rinses over the counter. You can use tessalon perles for cough and tylenol for fever. If you have any other concerns please return to the ED. Prescriptions: No Action Vitamin Plus Low Iron 27 mg iron- 1 mg tablet 1 tab PO DAILY Qty: 30 11RF ferrous sulfate 325 mg (65 mg iron) tablet 325 mg PO BID Qty: 60 5RF
[2022-01-24] MEDS: Acetaminophen 325 MG TABLET 650 MG PO (17:16)
[2022-01-24 17:52] LABS: Influenza A PCR NEGATIVE (Negative); Influenza B PCR NEGATIVE (Negative); Resp Syncy Virus RNA Qual PCR POSITIVE (Negative); SARS COV2 PCR INHOUSE NEGATIVE (Negative)
== END 2022-01-24 18:56 | disposition home or self-care (01) ==
PROVIDERS: Internal Medicine; Emergency Provider Student in an Organized Health Care Education/Training Program; PCP Internal Medicine
DX: O98.513 Other viral diseases complicating pregnancy, third trimester (principal); J01.90 Acute sinusitis, unspecified; B97.4 Respiratory syncytial virus as the cause of diseases classified elsewhere; Z3A.36 36 weeks gestation of pregnancy
CPT/HCPCS: 0241U; 99283

== ENCOUNTER 2022-01-25 05:28 | Emergency (ER) | payer OTHER, SELFPAY ==
[2022-01-25 05:36] VITALS: BP 119/69; PULSE 128; RESP 20; TEMP 36.7; O2SAT 96; BMI 32.7
--- NOTE | 2022-01-25 05:55 | ED_ITS ---
HPI - General Adult General Chief complaint: General Medical Stated complaint: RSV+/Abd pain Time Seen by Provider: 01/25/22 06:06 Source: patient Mode of arrival: ambulatory Limitations: no limitations History of Present Illness HPI narrative: Patient is a at 36 weeks of gestational age. History of vaginal delivery. Patient comes to the emergency room complaining of coughing and contractions. Patient was seen here yesterday, diagnosed with RSV, discharged home. Overnight, patient has been coughing a lot and now is complaining of contractions. Patient states the been going every hour approximately but for the last couple of hours, she has been experiencing contractions every 30 minutes. Patient denies any fluid leakage or vaginal bleeding. Patient denies chest pain or shortness of breath Related Data Previous Rx's Medication Instructions Recorded vitamin with calcium 1 tab PO DAILY #30 tabs 06/16/21 no.72-iron 27 mg-folic acid 1 mg tablet ( Vitamins Plus Low Iron) ferrous sulfate 325 mg (65 mg 325 mg PO BID #60 tabs 12/07/21 iron) tablet Allergies Allergy/AdvReac Type Severity Reaction Status Date / Time No Known Allergies Allergy Verified 01/06/22 11:36 Review of Systems Review of Systems: Constitutional : No Weight loss, No Fever, No Chills, No Night Sweats, No Fatigue, No Malaise ENT/Mouth : No Hearing loss, No Ear Pain, No Nasal Congestion, No Sinus Pain, No Hoarseness, No sore throat, No Rhinorrhea, No Swallowing Difficulty Eyes: No Eye Pain, No Swelling, No Redness, No Foreign Body, No Discharge, No Vision Changes Cardiovascular : No Chest Pain, No SOB, No Dyspnea on Exertion, No Orthopnea, No Edema, No Palpitations Respiratory : Complaining of cough and chest pain from coughing Gastrointestinal : No Nausea, No Vomiting, No Diarrhea, No Constipation, complaining of uterine contractions Q 30 minutes for the last couple of hours Genitourinary : no irregular bleeding, No Dysuria, No Urinary Frequency, No Hematuria, No Urinary Incontinence, No Urgency, No Flank Pain, No Urinary Flow Changes, No Hesitancy Musculoskeletal : No joint pain, No Myalgias, No Joint Swelling Skin : No Skin Lesions, No rash Neuro : No Weakness, No Numbness, No Paresthesias, No Loss of Consciousness, No Dizziness, No Headache Psych : No Anxiety/Panic, No Depression, No SI/HI/AH/VH, No Social Issues, Heme/Lymph: No Bruising, No Bleeding,No Lymphadenopathy Endocrine : No Polyuria, No Polydipsia, No Temperature Intolerance [facility] Past Medical History Medical History Overweight (BMI 25.0-29.9) Threatened Urge urinary incontinence Surgical History No history of previous surgery Family History Family History Mother Thyroid disease Maternal Grandmother Diabetes mellitus HTN (hypertension) Breast cancer Social History Social History Housing: Apartment Alcohol intake: current Alcohol intake frequency: does not drink Patient Tobacco Use Status: Former Tobacco user Smoked in Last 30 Days: No e-Cigarette/Vaping Use: Never Used Second Hand Smoke Exposure: Yes Use of substances other than those prescribed or required for medical reasons: No Advance Directives: No Patient : Yes service: No Current occupational status: employed Gender identity: Female Cognitive needs: No Hearing needs: No Vision needs: Yes Physical Exam ED Vital Signs: Vital Signs - 24 hr 01/25/22 05:36 01/25/22 06:02 Temperature 98.1 F Pulse Rate 128 H 114 H Respiratory Rate 20 14 Blood Pressure 119/69 121/69 Pulse Oximetry 96 97 Oxygen Delivery Method Room Air Room Air BMI result Body Mass Index 32.7 Const Other: Appearance: Alert. Oriented X3. Patient seems uncomfortable Eyes: Pupils equal, round and reactive to light. ENT: Pharynx normal. Neck: Normal inspection. Neck supple. No lymph nodes noted. No crepitus CVS: Normal heart rate and rhythm. Pulses normal. Normal S1 and S2 Respiratory: No respiratory distress. Breath sounds normal. No Wheezing. No rales Abdomen: Soft and nontender. No rigidity. No distention. Bedside ultrasound shows a heart rate in the 130s, good movement. exam: Patient is 2 cm dilated head is at least at 0 station. Skin: Skin warm clammy Extremities: No lower extremity edema. No Lacerations. No Rash Neuro: Oriented X 3. No motor deficit. No sensory deficit. Moving all extremities. No slurred speech. CN 2 through 12 grossly intact Psych: calm, cooperative, normal affect Course Course Course Narrative: Were waiting from call back from [facility]. Patient is to be transferred. Patient is receiving IV fluids. I discussed the patient with OB Gyne resident on-call, patient will be transferred to W2 at [facility]. Patient agrees with plan. Dr. Hilario accepted the pt Discharge Plan Discharge Clinical Impression: Irregular uterine contractions, RSV bronchitis Patient Disposition: Xfer Acute Care Hospital Transfer Details: W2 [facility], Dr. Hilario Prescriptions: No Action Vitamin Plus Low Iron 27 mg iron- 1 mg tablet 1 tab PO DAILY Qty: 30 11RF ferrous sulfate 325 mg (65 mg iron) tablet 325 mg PO BID Qty: 60 5RF
[2022-01-25 06:02] VITALS: BP 121/69; PULSE 114; RESP 14; O2SAT 97
--- NOTE | 2022-01-25 06:10 | PC.NURSE ---
Addendum entered by Sharmaine Wilcox 01/25/22 06:16: Vaginal exam done by provider. No bloody show, no vaginal drainage. Pt reports this is second . First delivered vaginally. Original Note: Pt aox4. Breaths are even and unlabored. HR 116. Reports 36 week gestation with an estimated delivery date of 02/19/2022. Pt having contractions at this time. Reports abd pain with lower abd pressure. heart rate 152 bpm. MD at bedside. Pt to be transferred to [facility]. Pt aware of plan of care .
== END 2022-01-25 06:55 | disposition short-term general hospital (02) ==
PROVIDERS: Emergency Provider Emergency Medicine; PCP Internal Medicine
DX: J20.5 Acute bronchitis due to respiratory syncytial virus (principal); R10.9 Unspecified abdominal pain
CPT/HCPCS: 99284; 99285

== ENCOUNTER → 2022-02-08 10:07 | Outpatient (BNVA) | payer OTHER, SELFPAY | PROVIDERS: PCP Internal Medicine; Visit Provider Advanced Practice Midwife | DX: Z39.2 Encounter for routine postpartum follow-up (principal); Z39.1 Encounter for care and examination of lactating mother | CPT/HCPCS: 99212 ==

== ENCOUNTER → 2022-03-09 10:15 | Outpatient (BNVA) | payer OTHER, SELFPAY | PROVIDERS: PCP Internal Medicine; Visit Provider Advanced Practice Midwife | DX: Z39.1 Encounter for care and examination of lactating mother (principal); Z39.2 Encounter for routine postpartum follow-up; N81.89 Other female genital prolapse | CPT/HCPCS: 99212 ==

== ENCOUNTER → 2022-06-08 09:07 | Outpatient (BNVA) | payer OTHER, SELFPAY | PROVIDERS: PCP Internal Medicine; Visit Provider Advanced Practice Midwife | DX: Z30.09 Encounter for other general counseling and advice on contraception (principal); M54.9 Dorsalgia, unspecified | CPT/HCPCS: 99212 ==

== ENCOUNTER 2022-10-21 08:41 | Outpatient (AMB) | payer OTHER, SELFPAY ==
[2022-10-21 08:45] VITALS: BP 102/78; PULSE 96; O2SAT 98; BMI 30.7
--- NOTE | 2022-10-21 08:45 | MHC.PC.OV ---
Vital Signs 10/21/22 08:45 Height 5 ft 2 in Weight 168 lb BMI 30.7 BP 102/78 Blood Pressure Location Lt brachial Position Sitting Pulse 96 Pulse Source Pulse Oximeter Pulse Oximetry (%) 98 Oxygen Delivery Method Room Air Intake Visit Reasons: PE Supply Room Clerk Required: No Accompanied by: Self / Same As Patient Allergies No Known Allergies Allergy (Verified 10/21/22 09:09) Medication List - Last Reconciled 10/21/22 by Taras Vernon MD No Known Home Meds Tobacco use date assessed: 10/21/22 Dental Screening Dental Screen Date: 10/21/22 Did you have a dental visit in the last 12 months?: Yes Did you have a dental problem in the last 6 months where you did not have access to dental care?: No Was dental information given to patient?: Patient has dentist HPI PE HPI Details Patient comes in today for her annual physical examination States that she feels okay Still has recurrent pain over the lateral side of her right ankle, which she states has been bothering her for a few years now She denies any history of injury or trauma to her right ankle but states that she is on her feet all the time at work (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) Had x-rays of the ankle done a couple of years ago which showed only some soft tissue swelling Also relates recurrent back pain - states that she was often told that she has scoliosis when she was growing up She denies any headaches or dizziness Denies any chest pains, no SOB No nausea/vomiting, no abdominal pain No change in bowel habits noted Denies any acute urinary symptoms States that she is up-to-date with her annual pap smear and 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 [facility] Medical History (Updated 10/21/22 @ 09:40 by Taras Vernon MD) Back pain Chronic ankle pain Obesity (BMI 30-39.9) Threatened Urge urinary incontinence Surgical History Previous section Family History Mother Thyroid disease Maternal Grandmother Diabetes mellitus HTN (hypertension) Breast cancer Social History Housing: Apartment Alcohol intake: current Alcohol intake frequency: does not drink Patient Tobacco Use Status: Former Tobacco user e-Cigarette/Vaping Use: Never Used Second Hand Smoke Exposure: Yes service: No Current occupational status: employed Gender identity: Female Cognitive needs: No Hearing needs: No Vision needs: Yes Female Reproductive History Menstrual Age of Menarche: 9 Questionnaire PHQ-9 Over the last 2 weeks, how often have you been bothered by any of the following problems? 1. Little interest or pleasure in doing things: not at all 2. Feeling down, depressed, or hopeless: not at all 3. Trouble falling or staying asleep, or sleeping too much: not at all 4. Feeling tired or having little energy: not at all 5. Poor appetite or overeating: not at all 6. Feeling bad about yourself - or that you are a failure or have let yourself or your family down: not at all 7. Trouble concentrating on things, such as reading the newspaper or watching television: not at all 8. Moving or speaking so slowly that other people could have noticed. Or the opposite - being so fidgety or restless that you have been moving around a lot more than usual: not at all 9. Thoughts that you would be better off or of hurting yourself in some way: not at all Total score: 0 Depression Screening Interpretation: Negative 15972 - PHQ-9 Billing: Yes Source: Developed by Drs. Leland Cuevas, Eileen Villa, Micha Laura and colleagues, with an educational manuel from [email or web address]. Thrive Questionnaire Date Thrive assessed: 10/21/22 I am a: Patient What is your living situation today?: I have a steady place to live Within the past 12 months, did the food you bought not last and you didn't have the money to get more?: Never true Within the past 12 months, did you worry whether your food would run out before you got money to buy more?: Never true Do you have trouble paying for medicines?: No Do you have trouble getting transportation to medical appointments?: No Do you have trouble paying your heating and electricity bill?: No Do you have trouble taking care of your child, family member or friend?: No Do you have trouble with day-to-day activities such as bathing, preparing meals, shopping, managing finances, etc.?: No Are you currently unemployed and looking for a job?: No Are you interested in more education?: No Please select the resources that you would like help with: None Currently or been in a relationship where the following occur: no concerns reported AUDIT C Alcohol Use Questionnaire (AUDIT-C) 1. How often do you have a drink containing alcohol?: Monthly or less 3. How often do you have six or more drinks on one occasion?: Never Total Score: 1 Score Reviewed/Action Taken: Yes CECILIA-7 AMB Questionnaire CECILIA-7 Date CECILIA - 7 assessed: 10/21/22 Feeling nervous, anxious, or on edge: 0 = Not at all Not being able to stop or control worryin = Not at all Worrying too much about different things: 0 = Not at all Trouble relaxin = Not at all Being so restless that it is hard to sit still: 0 = Not at all Becoming easily annoyed or irritable: 0 = Not at all Feeling afraid as if something awful might happen: 0 = Not at all Total CECILIA-7 score (0-4 normal; 5-9 mild; 10-14 moderate; 15-21 severe): 0 Source: Developed by Drs. Leland Cuevas, Eileen Villa, Micha Laura and colleagues, with an educational manuel from [email or web address]. CECILIA-7 Assessment Billing CECILIA-7 Assessment Tool: CECILIA-7 Assessment 36496 Review of Systems Const Denies chills, Reports difficulty sleeping (mostly when falling asleep - admits that she has no routine bedtime), Denies fatigue, Denies fever(s), Denies headache(s) and Denies malaise Eyes Denies blurry vision, Denies change in vision, Denies irritation and Denies itchy eyes ENT Denies dysphagia, Denies dizziness, Denies otalgia, Denies headache(s), Denies nasal congestion, Denies neck pain, Denies odynophagia and Denies sore throat Card Denies chest pain, Denies rapid heart rate, Denies irregular heart rhythm, Denies palpitations and Denies dyspnea Resp Denies chest congestion, Denies cough, Denies dyspnea and Denies wheezing GI Denies abdominal pain, Denies bloating, Denies constipation, Denies dysphagia, Denies heartburn, Denies diarrhea, Denies nausea, Denies odynophagia and Denies vomiting Denies hematuria, Denies urinary frequency, Denies dysuria, Denies urinary incontinence and Denies urinary urgency Musc Reports back pain (on and off), Reports arthralgias (recurrent over the right ankle), Denies joint swelling, Denies muscle weakness and Denies neck pain Skin/Breast Denies breast pain, Denies breast mass, Denies change in pigmentation, Denies lesions, Denies rash and Denies unusual bruising Neuro Denies dizziness, Denies headache(s) and Denies paresthesias Psych Denies anxiety and Denies depression Endo Denies fatigue and Denies palpitations Terry/Lymph Denies easy bruising Aller/Immun Denies itchy eyes and Denies wheezing Physical exam (Primary Care) Vital Signs: Last Vital Signs Pulse 96 10/21/22 08:45 BP 102/78 10/21/22 08:45 Pulse Ox 98 10/21/22 08:45 Oxygen Delivery Method Room Air 10/21/22 08:45 BMI result Body Mass Index 30.7 Tobacco/Smoking Status: Tobacco use Status Tobacco use date assessed 10/21/22 10/21/22 08:53 Patient Tobacco Use Status Former Tobacco user 10/21/22 08:53 e-Cigarette/Vaping Use Never Used 10/21/22 08:53 PHQ-9: PHQ-9 Score PHQ-9: Total score 0 10/21/22 08:53 Depression Screening Interpretation: Negative Thrive Assessment: Date of Thrive Assessment Date Thrive assessed 10/21/22 10/21/22 08:53 Currently or been in a relationship where the following occur: no concerns reported Const General: no acute distress, alert and awake Orientation/consciousness: patient oriented x3 HENMT Head: Yes normocephalic and Yes atraumatic Ears: external ears normal, TM's normal bilaterally and EAC's normal General nose exam: No nasal discharge present Face and sinus: Yes normal facial exam and Yes sinuses nontender Teeth and gingiva: dentition normal Throat: Yes posterior oropharynx normal and Yes tonsils normal (no TP congestion) Eyes Eyelids: Yes eyelids normal Conjunctivae: conjunctivae normal Pupils: Equal, round and reactive pupils present EOM: EOMs intact bilaterally Neck Neck: Yes no lymphadenopathy and Yes supple Thyroid: Thyroid normal Resp Auscultation: clear to auscultation bilaterally, no rales and no wheezes Cardio Rate: regular rate Rhythm: regular rhythm Heart sounds: no murmurs GI Palpation (GI): Soft to palpation, nontender and No hepatosplenomegaly present Auscultation: normal bowel sounds General: Yes no CVA tenderness Back/Spine/Pelvis Back: no CVA tenderness Thoracic/Lumbar Spine: thoracic spinal tenderness at T12 and No lumbar spinal tenderness Skin Lesions: no lesions Rashes: no rashes Neuro General: patient oriented x3, moves all extremities, no focal motor deficits and CN's II-XI intact bilaterally Cranial nerves: Yes Equal, round and reactive pupils present Cognition (Neuro): normal cognition Gait exam (Neuro): Normal gait present Extrem General: Yes no clubbing, cyanosis or edema Right lower extremity: ankle Details: normal ROM; no tenderness and no swelling Assessment and Plan Assessment & Plan (1) Annual physical exam: Code(s): Z00.00 - Encounter for general adult medical examination without abnormal findings Plan: Check labs (2) Back pain: Comment: Patient states she has scoliosis Code(s): M54.9 - Dorsalgia, unspecified Qualifiers: Back pain location: back pain in other location Chronicity: unspecified Qualified Code(s): M54.89 - Other dorsalgia Plan: Patient states that she has been told often when she was growing up that she has scoliosis She also has a mild anterior wedge compression fracture of the T12 vertebral body (uncertain chronicity) and multilevel mild lower thoracic and lumbar spondylosis seen on x-rays done back in 2019 Will send her for a dedicated thoracic spine x-rays for further evaluation (3) Chronic ankle pain: Code(s): M25.579 - Pain in unspecified ankle and joints of unspecified foot; G89.29 - Other chronic pain Qualifiers: Laterality: right Qualified Code(s): M25.571 - Pain in right ankle and joints of right foot; G89.29 - Other chronic pain Plan: Relates (+) recurrent right ankle pain (mostly over the lateral aspect) for years Denies any history of injury or trauma to her right ankle X-rays done in 2020 revealed only mild lateral soft tissue swelling with no osseous abnormalities Will send her for repeat right ankle x-rays for further evaluation Will also refer her to podiatry for further evaluation and management of her chronic right ankle issues (4) Insomnia: Code(s): G47.00 - Insomnia, unspecified Qualifiers: Insomnia type: unspecified Qualified Code(s): G47.00 - Insomnia, unspecified Plan: Sleep hygiene discussed Patient is advised to try to develop a set bedtime as well as some good / regular sleeping habits first as it appears that her troubles with falling asleep are most likely due to the fact that she does not have a set bedtime and she really has no sleeping habits or routine that she adheres to Advised that once she develops a good pre-bedtime routine and this still does not help, then we can consider trying her on some sleep aids on an as-needed basis (5) Obesity (BMI 30-39.9): Code(s): E66.9 - Obesity, unspecified Plan: Reinforced diet/exercise as tolerated/lose weight Plan To return in 1 year for her next annual physical examination Orders: Orders XR thoracic spine 3V Today M54.9 - Dorsalgia, unspecified XR ankle RT min 3V Today G89.29 - Other chronic pain, M25.579 - Pain in unspecified ankle and joints of unspecified foot Comprehensive [place]. Panel Fast Today R73.09 - Other abnormal glucose, Z00.00 - Encounter for general adult medical examination without abnormal findings Lipid Panel Today E78.00 - Pure hypercholesterolemia, unspecified, R73.09 - Other abnormal glucose, Z00.00 - Encounter for general adult medical examination without abnormal findings TSH reflex Free T4 Today R73.09 - Other abnormal glucose, Z00.00 - Encounter for general adult medical examination without abnormal findings Vitamin D 25-OH Total Today E55.9 - Vitamin D deficiency, unspecified, Z00.00 - Encounter for general adult medical examination without abnormal findings Complete Blood Count Auto Diff Today R73.09 - Other abnormal glucose, Z00.00 - Encounter for general adult medical examination without abnormal findings UA CC w/rflx Micro + Cult Today R30.0 - Dysuria, R73.09 - Other abnormal glucose, Z00.00 - Encounter for general adult medical examination without abnormal findings Erythrocyte Sedimentation Rate Today G89.29 - Other chronic pain, M25.579 - Pain in unspecified ankle and joints of unspecified foot Referrals Podiatry Referral G89.29 - Other chronic pain, M25.579 - Pain in unspecified ankle and joints of unspecified foot Coding Level of Care Code Est Pt Prev Care [id number]) Diagnoses Annual physical exam Z00.00 Back pain M54.89 Back pain location: back pain in other location Chronicity: unspecified Chronic ankle pain M25.571; G89.29 Laterality: right Insomnia G47.00 Insomnia type: unspecified Obesity (BMI 30-39.9) E66.9 Additional Codes CECILIA-7 Assessment Billing - CECILIA-7 Assessment Tool: CECILIA-7 Assessment [id number] ([id number])
== END 2022-10-21 09:33 | disposition home or self-care (01) ==
PROVIDERS: PCP Internal Medicine; Visit Provider Internal Medicine
DX: Z00.00 Encounter for general adult medical examination without abnormal findings (principal); E66.9 Obesity, unspecified; M54.89 Other dorsalgia; Z68.30 Body mass index [BMI] 30.0-30.9, adult; M25.571 Pain in right ankle and joints of right foot; G89.29 Other chronic pain; G47.00 Insomnia, unspecified
CPT/HCPCS: 99395

== ENCOUNTER 2022-10-24 10:51 | Outpatient (REF) | payer OTHER, SELFPAY ==
--- NOTE | ~2022-10-24 | XR_ITS ---
EXAMINATION: XR ANKLE, RIGHT CLINICAL INFORMATION: Right ankle pain COMPARISON: 01/01/2021 TECHNIQUE: AP, lateral, and mortise views of the right ankle. FINDINGS: No fracture. Alignment is anatomic. No erosions. Joint spaces are maintained. Soft tissues are mildly prominent laterally. XR/XR ankle RT min 3V IMPRESSION: Mild soft tissue edema
--- NOTE | ~2022-10-24 | XR_ITS ---
EXAMINATION: XR THORACIC SPINE CLINICAL INFORMATION: Unspecified dorsalgia COMPARISON: None available. TECHNIQUE: 3 views of the thoracic spine were obtained. FINDINGS: There is no fracture or bone destruction seen and the vertebral alignment is normal. There is minimal spurring of the endplates of T11 and T12 vertebral body. There is no disc space narrowing. There is no abnormality of the paraspinal soft tissues. XR/XR thoracic spine 3V IMPRESSION: Minor degenerative changes at the level of T11 and T12
[2022-10-24 11:17] LABS: MANUAL DIFF FLAG NO
[2022-10-24 12:02] LABS: Basophils Percent Auto 0.6 % (0-2); Eosinophils Absolute Auto 0.2 X10*3/uL (0.0-0.4); Eosinophils Percent Auto 3.5 % (0-4); Hemoglobin 12.4 g/dl (12.0-16.0); Imm Gran Abs Auto 0.01 X10*3/uL (0.00-0.03); Imm Gran Pct Auto 0.2 % (0.0-0.4); Lymphocytes Absolute Auto 1.5 X10*3/uL (1.2-4.9); Mean Corpuscular HGB Conc 32.6 g/dl (31.0-35.0); Mean Corpuscular Hemoglobin 27.6 pg (27.0-33.0); Mean Corpuscular Volume 84.6 fL (80.0-98.0); Mean Platelet Volume 11.1 fL (9.4-12.3); Monocytes Absolute Auto 0.5 X10*3/uL (0.1-1.2); Monocytes Percent Auto 7.4 % (2-11); Neutrophils Absolute Auto 4.3 x10*3/uL (2.0-8.3); Neutrophils Percent Auto 65.3 % (45-73); Platelet Count 275 X10*3/uL (160-400); Red Blood Count 4.49 X10*6/uL (4.20-5.50); Red Cell Distribution Width 13.5 % (11.0-16.0); White Blood Count 6.5 X10*3/uL (4.8-10.8)
[2022-10-24 12:43] LABS: Appearance Urine Cloudy; Color Urine Orange; Glucose Urine UA Negative (Negative); Leukocyte Esterase Urine Moderate (2+) (Negative); Nitrite Urine Negative (Negative); Specific Gravity - Urine 1.015 (1.005-1.025); UMIC TRIGGER UACC YES; Urine Blood Large (3+) (Negative); Urine Ketones Negative (Negative); Urine Protein 30 (1+) mg/dL (Neg-Trace)
[2022-10-24 12:45] LABS: Alanine Aminotransferase 15 U/L (0-31); Albumin Level 4.3 g/dL (3.5-5.0); Alkaline Phosphatase 84 U/L (39-117); Anion Gap 11 (12-20); Aspartate Amino Transferase 15 U/L (5-31); Bilirubin Total 0.4 mg/dL (0.0-1.0); Blood Urea Nitrogen 7 mg/dL (9-16); Calcium 9.6 mg/dL (8.4-10.2); Carbon Dioxide 25 mmol/L (22-29); Chloride 108 mmol/L (96-108); Cholesterol 139 mg/dL (<200); Estimated Glomerular Filt Rate > 60; Glucose Fasting 94 mg/dL (60-99); HDL Cholesterol 47 mg/dL (>40); LDL Cholesterol Calculated 70 mg/dL (<100); Potassium 3.6 mmol/L (3.3-5.1); Sodium 140 mmol/L (135-145); Total Protein 7.2 g/dL (6.5-8.0); Triglycerides 112 mg/dL (<150)
[2022-10-24 12:48] LABS: TSH reflex Free T4 1.62 uIU/mL (0.32-4.0); Vitamin D 25-OH Total 32.6 ng/mL (>30)
[2022-10-24 12:53] LABS: Bacteria Urine Trace (None Seen); Hyaline Casts Urine 0-2 /LPF (0-2); RBC Urine >20 /HPF (0-2); UACC Culture Trigger YES; WBC Urine >50 /HPF (0-5)
[2022-10-24 13:40] LABS: Erythrocyte Sedimentation Rate 5 MM/HR (0-20)
== END 2022-10-24 10:52 | disposition home or self-care (01) ==
LOC: HO.LAB 10:51
PROVIDERS: PCP Internal Medicine; Visit Provider Internal Medicine
DX: M25.571 Pain in right ankle and joints of right foot (principal); M54.9 Dorsalgia, unspecified; G89.29 Other chronic pain; R73.09 Other abnormal glucose; E55.9 Vitamin D deficiency, unspecified; E78.00 Pure hypercholesterolemia, unspecified; Z00.00 Encounter for general adult medical examination without abnormal findings
CPT/HCPCS: 36415; 72072; 73610; 80053; 80061; 81001; 82306; 84443; 85025; 85652; 87086

== ENCOUNTER 2023-02-16 08:56 | Emergency (ER) | payer OTHER, SELFPAY ==
[2023-02-16 09:05] VITALS: BP 126/85; PULSE 94; RESP 20; TEMP 37.1; O2SAT 100; BMI 27.4
--- NOTE | 2023-02-16 10:09 | ED.URI ---
HPI - URI/Sore Throat General Chief Complaint: Upper Respiratory Symptoms Stated Complaint: body aches running nose neck pain Time Seen by Provider: 02/16/23 09:30 Source: patient Mode of arrival: ambulatory Limitations: no limitations History of Present Illness HPI Narrative: 32 year old female with no significant pmhx presents to the ED today for evaluation of body aches, CHAIREZ, left sided neck pain, cough, congestion and fevers x1 day. Reports cough productive of yellow sputum. Reports left-sided neck pain worse with touching the area. Describes headache as a pressure sensation. Endorses children and mother sick with similar symptoms at home. 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 States that she previously had RSV while and was hospitalized for this. Denies dizziness, vision changes, sore throat, chest pain, shortness of breath, difficulty breathing, rash, lower extremity pain or swelling. Denies recent travel or long car rides. Related Data Previous Rx's Medication Instructions Recorded benzonatate 100 mg capsule 100 mg PO BID PRN cough 7 days #14 02/16/23 caps Allergies Allergy/AdvReac Type Severity Reaction Status Date / Time No Known Allergies Allergy Verified 10/21/22 09:09 Review of Systems Review of Systems: Constitutional: +fever, No chills, fatigue, night sweats, weight changes ENT/Mouth: No ear pain, hearing loss, +nasal congestion, No sinus pain, rhinorrhea, sore throat Eyes: No eye pain, swelling, redness, vision changes, discharge Cardio: No chest pain, palpitations, GUARDADO, orthopnea, peripheral edema Pulm: No SOB, +cough, +sputum, No wheezing, dyspnea, hemoptysis GI: No nausea, vomiting, hematemesis, abdominal pain, diarrhea, constipation, hematochezia, melena : No irregular bleeding, dysuria, frequency, urgency, hesitancy, hematuria, flank pain, urinary flow changes, urinary incontinence or retention MSK: No back pain, neck pain, joint pain, myalgias Skin: No lesions, rashes Neuro: No weakness, numbness, paresthesias, LOC, dizziness, +headache All other systems reviewed and are negative. [facility] Past Medical History Attestation statement: The following information was validated with the patient. Source: old records reviewed and nursing notes reviewed Medical History Obesity (BMI 30-39.9) Back pain Threatened Chronic ankle pain Urge urinary incontinence Surgical History Previous section Family History Family History Mother Thyroid disease Maternal Grandmother Diabetes mellitus HTN (hypertension) Breast cancer Social History Social History Housing: Apartment Alcohol intake: current Alcohol intake frequency: does not drink Patient Tobacco Use Status: Former Tobacco user e-Cigarette/Vaping Use: Never Used Second Hand Smoke Exposure: Yes Advance Directives: No service: No Current occupational status: employed Gender identity: Female Cognitive needs: No Hearing needs: No Vision needs: Yes Physical Exam Vital Signs: Vital Signs: Last Vital Signs Temp 98.7 F 02/16/23 09:05 Pulse 94 02/16/23 09:05 Resp 20 02/16/23 09:05 BP 126/85 02/16/23 09:05 Pulse Ox 100 02/16/23 09:05 O2 Del Method Room Air 02/16/23 09:05 BMI result Body Mass Index 27.4 Vital signs stable, afebrile, not hypoxic Const: General: cooperative, healthy appearing, comfortable, no acute distress, alert and awake Orientation/consciousness: patient oriented x3 Limitations: no limitations HEENT: Other: + posterior oropharynx without erythema or edema. No tonsillar exudates. Uvula is midline. Controlling secretions and speaking complete sentences. Head: Yes normal to inspection Ears: hearing grossly normal bilaterally, external ears normal, TM's normal bilaterally, EAC's normal, mastoids normal and no periauricular adenopathy General nose exam: Normal external nose present and Normal nares present Face and sinus: Yes normal facial exam and Yes sinuses nontender Mouth: Normal oral and palatal mucosa present Eyes: General: appearance normal, both eyes and all related structures Periorbital: periorbital findings normal Conjunctivae: conjunctivae normal Sclerae: sclerae normal Pupils: Equal, round and reactive pupils present EOM: EOMs intact bilaterally Neck: Neck: Yes normal visual inspection and Yes no meningeal signs Resp: Effort & Inspection: normal respiratory effort, able to speak in complete sentences and no use of accessory muscles Auscultation: clear to auscultation bilaterally and no wheezes Cardio: Rate: regular rate Rhythm: regular rhythm Peripheral pulses: radial pulses present GI: Inspection: Yes normal to inspection Palpation (GI): Soft to palpation, nontender and no guarding : General: Yes no CVA tenderness Back/Spine/Pelvis: Back: no CVA tenderness Skin: General skin exam: no rashes or lesions noted Neuro: General: patient oriented x3, gait normal, moves all extremities and no meningeal signs Cranial nerves: Yes Equal, round and reactive pupils present Extrem: General: Yes normal to inspection and Yes full ROM Course Course Course Narrative: 1027-- patient tested positive for influenza and RSV. She is afebrile and not hypoxic. Reports taking Tylenol prior to arrival for fever. Discussed positive results with patient. Informed her that treatment for this is symptomatic and that antibiotics are not warranted. Tells me that she has had RSV in the past while and was hospitalized for this. Discussed strict return precautions such as difficulty breathing. All questions are answered at this time. I feel comfortable discharging patient home with cough medicine, symptomatic care and strict return precautions. Patient verbalizes understanding. She is in agreement with this position in stable for discharge. Medical Decision Making Medical Decision Making [facility] Narrative: 32 year old female with no significant pmhx presents to the ED today for evaluation of body aches, CHAIREZ, left sided neck pain, cough, congestion and fevers x1 day. Vital signs stable, afebrile, not hypoxic. Patient is nontoxic appearing in no acute distress. No signs of respiratory distress. Bilateral EACs and TMs within normal limits. No lymphadenopathy. posterior oropharynx without erythema or edema. No tonsillar exudates. Uvula is midline. Controlling secretions and speaking complete sentences. Lungs CTA bilaterally. Clinical concern for viral syndrome, headache, otitis media/externa. 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 Plan for serology and re-evaluation. Differential Diagnosis Differential Diagnoses: The differential diagnosis associated with the presentation includes As above. Admission/Observation Not indicated. Lab Data [facility] Lab Attestation statement: I reviewed the patient's lab results. As above. Labs: Lab Results 02/16/23 Range/Units 09:21 Influenza Type A (PCR) POSITIVE A (Negative) Influenza Type B (PCR) NEGATIVE (Negative) RSV RNA Qual (PCR) POSITIVE A (Negative) SARS-CoV-2 RNA (RT-PCR) NEGATIVE (Negative) External Record Review External record reviewed: Inpatient record, Office record, Outpatient record, Prior outpatient labs, Prior outpatient radiology, Primary care record and Outside ED record Prescription Management I considered prescription management with: Pain Medication and Other (Antitussives) Critical Care Time Critical Care Time Critical Care Time: No Discharge Plan Discharge Clinical Impression: Respiratory syncytial virus (RSV), Influenza A Patient Disposition: Home, Self-Care Instructions: Respiratory Syncytial Virus (ED), Influenza (ED) Additional Instructions: Today you tested positive for RSV and influenza A. Symptoms may last anywhere from 1-4 weeks. Take Ibuprofen or Tylenol as needed for fevers or body aches.?? Practice social distancing and good hand hygiene. Drink plenty of fluids. Tessalon perles sent to pharmacy. Take these as needed for cough. Follow-up with your primary care provider this week. Return to the emergency department with new or worsening symptoms such as shortness of breath, difficulty breathing, or high fever that does not respond to medication. In case of emergency call 911 You can purchase a pulse oximeter from your local pharmacy or grocery store, and monitor your oxygen saturation if it goes below 94% you should return to the emergency department for further evaluation. Prescriptions: New benzonatate 100 mg capsule 100 mg PO BID PRN (Reason: cough) 7 Days Qty: 14 0RF Referrals: Taras Vernon MD [Primary Care Provider] - Stand Alone Forms: Work/School Release Interventions: ED Discharge Assessment Last Done: 02/16/23 11:07 Discharge Date/Time: 02/16/23 11:07
[2023-02-16 10:10] LABS: Influenza A PCR POSITIVE (Negative); Influenza B PCR NEGATIVE (Negative); Resp Syncy Virus RNA Qual PCR POSITIVE (Negative); SARS COV2 PCR INHOUSE NEGATIVE (Negative)
== END 2023-02-16 11:07 | disposition home or self-care (01) ==
PROVIDERS: Emergency Provider Student in an Organized Health Care Education/Training Program; PCP Internal Medicine
DX: J10.1 Influenza due to other identified influenza virus with other respiratory manifestations (principal); B97.4 Respiratory syncytial virus as the cause of diseases classified elsewhere; M79.10 Myalgia, unspecified site; M54.2 Cervicalgia; R09.89 Other specified symptoms and signs involving the circulatory and respiratory systems; R05.9 Cough, unspecified; Z20.822 Contact with and (suspected) exposure to COVID-19; Z20.828 Contact with and (suspected) exposure to other viral communicable diseases
CPT/HCPCS: 0241U; 99282; 99283

== ENCOUNTER 2023-07-11 14:37 | Outpatient (AMB) | payer OTHER, SELFPAY ==
[2023-07-11 14:39] VITALS: BP 124/76; PULSE 75; O2SAT 98; BMI 29.4
--- NOTE | 2023-07-11 14:39 | A.OFFPC_ITS ---
Vital Signs 07/11/23 14:39 Height 5 ft 2 in Weight 161 lb BMI 29.4 BP 124/76 Blood Pressure Location Lt brachial Pulse 75 Pulse Source Pulse Oximeter Pulse Oximetry (%) 98 Oxygen Delivery Method Room Air Intake Visit Reasons: lump under chin Intake Note: Patient c/o lump under chin X4 days. patient states no pain. Social Service Technician Required: No Allergies No Known Allergies Allergy (Verified 02/25/24 15:50) Medication List - Last Reconciled 07/11/23 by Taras Vernon MD No Known Home Meds Tobacco use date assessed: 07/11/23 Dental Screening Dental Screen Date: 07/11/23 HPI lump under chin HPI Details Patient comes in today for further evaluation of a nodule that she first noticed under her chin about 3 days ago States that the nodule is still present and she is concerned about this Notes some tenderness on palpation of the nodule Also relates that she has been experiencing some fatigue lately She denies any recent cough or cold symptoms; denies any fever or sore throat Denies any headaches or dizziness Denies any chest pains, no shortness of breath No nausea/vomiting, no abdominal pain No change in bowel habits noted [facility] Medical History Obesity (BMI 30-39.9) Back pain Threatened Chronic ankle pain Urge urinary incontinence Surgical History Previous section Family History Mother Thyroid disease Maternal Grandmother Diabetes mellitus HTN (hypertension) Breast cancer Social History Housing: Apartment Alcohol intake: current Alcohol intake frequency: does not drink Patient Tobacco Use Status: Former Tobacco user e-Cigarette/Vaping Use: Never Used Second Hand Smoke Exposure: Yes service: No Current occupational status: employed 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 Depression Screening Interpretation: Negative Depression Screening Done: Yes Source: Developed by Drs. Leland Cuevas, Micha Guillen and colleagues, with an educational manuel from [employer]. Thrive Questionnaire Date Thrive assessed: 07/11/23 I am a: Patient What is your living situation today?: I have a steady place to live Within the past 12 months, did the food you bought not last and you didn't have the money to get more?: Never true Within the past 12 months, did you worry whether your food would run out before you got money to buy more?: Never true Do you have trouble paying for medicines?: No Do you have trouble getting transportation to medical appointments?: No Do you have trouble paying your heating and electricity bill?: No Do you have trouble taking care of your child, family member or friend?: No Do you have trouble with day-to-day activities such as bathing, preparing meals, shopping, managing finances, etc.?: No Are you currently unemployed and looking for a job?: No Are you interested in more education?: No Please select the resources that you would like help with: None Currently or been in a relationship where the following occur: no concerns reported THRIVE Score: 0 AUDIT C Alcohol Use Questionnaire (AUDIT-C) 1. How often do you have a drink containing alcohol?: Monthly or less 3. How often do you have six or more drinks on one occasion?: Never Total Score: 1 Score Reviewed/Action Taken: Yes CECILIA-7 AMB Questionnaire CECILIA-7 Date CECILIA - 7 assessed: 07/11/23 Source: Developed by Drs. Leland Cuevas, Micha Guillen and colleagues, with an educational manuel from [employer]. Review of Systems Const Denies chills, Reports fatigue (lately), Denies fever(s) and Denies headache(s) ENT Details: (+) slightly painful nodule under the chin x 3 days Denies dysphagia, Denies dizziness, Denies otalgia, Denies headache(s), Denies neck pain, Denies odynophagia and Denies sore throat Card Denies chest pain, Denies irregular heart rhythm, Denies palpitations and Denies dyspnea Resp Denies chest congestion, Denies cough and Denies dyspnea GI Denies abdominal pain, Denies constipation, Denies dysphagia, Denies heartburn, Denies diarrhea, Denies nausea, Denies odynophagia and Denies vomiting Denies urinary frequency, Denies dysuria and Denies urinary urgency Musc Reports back pain (on and off), Reports arthralgias (recurrent over the right ankle) and Denies neck pain Skin/Breast Denies rash Neuro Denies dizziness, Denies headache(s) and Denies paresthesias Psych Denies anxiety and Denies depression Endo Reports fatigue (lately) and Denies palpitations Terry/Lymph Denies easy bruising Physical exam (Primary Care) Vital Signs: Last Vital Signs Pulse 75 07/11/23 14:39 BP 124/76 07/11/23 14:39 Pulse Ox 98 07/11/23 14:39 Oxygen Delivery Method Room Air 07/11/23 14:39 BMI result Body Mass Index 29.4 Tobacco/Smoking Status: Tobacco use Status Tobacco use date assessed 07/11/23 07/11/23 14:40 Patient Tobacco Use Status Former Tobacco user 07/11/23 14:40 e-Cigarette/Vaping Use Never Used 07/11/23 14:40 Depression Screening Interpretation: Negative Thrive Assessment: Date of Thrive Assessment Date Thrive assessed 07/11/23 07/11/23 14:40 Currently or been in a relationship where the following occur: no concerns reported Const General: no acute distress and alert HENMT Ears: TM's normal bilaterally and EAC's normal Throat: Yes posterior oropharynx normal and Yes tonsils normal (no TP congestion) Neck Other: (+) slightly tender nodule on palpation under the chin (submental area) Neck: Yes supple Thyroid: Thyroid normal Resp Auscultation: clear to auscultation bilaterally, no rales and no wheezes Cardio Rate: regular rate Rhythm: regular rhythm Heart sounds: no murmurs GI Palpation (GI): Soft to palpation and nontender Auscultation: normal bowel sounds General: Yes no CVA tenderness Back/Spine/Pelvis Back: no CVA tenderness Thoracic/Lumbar Spine: lumbar spinal tenderness Skin Rashes: no rashes Extrem General: Yes no clubbing, cyanosis or edema Coding Level of Care Code Est Pt Level 3 (93043) Diagnoses Enlarged submental lymph node R59.0
== END 2023-07-11 15:26 | disposition home or self-care (01) ==
PROVIDERS: PCP Internal Medicine; Visit Provider Internal Medicine
DX: R59.0 Localized enlarged lymph nodes (principal)
CPT/HCPCS: 99499

== ENCOUNTER 2023-07-11 15:33 | Outpatient (REF) | payer OTHER, SELFPAY ==
--- NOTE | ~2023-07-11 | XR_ITS ---
EXAMINATION: XR SOFT TISSUE NECK CLINICAL INDICATION: Localized enlarged lymph nodes COMPARISON: None available. TECHNIQUE: 2 views of the soft tissue neck were obtained. FINDINGS: Soft tissue films of the neck demonstrate a normal larynx, pharynx and upper trachea. No soft tissue swelling or opaque foreign body is demonstrated. There is straightening of the usual cervical lordosis which can be seen with muscle spasm or be due to patient positioning. XR/XR soft tissue neck IMPRESSION: Straightening of the usual cervical lordosis which can be seen with muscle spasm or be due to patient positioning. No other significant finding.
[2023-07-11 15:48] LABS: MANUAL DIFF FLAG NO
[2023-07-11 17:22] LABS: Basophils Percent Auto 0.6 % (0-2); Eosinophils Absolute Auto 0.2 X10*3/uL (0.0-0.4); Eosinophils Percent Auto 3.7 % (0-4); Hematocrit 36.9 % (37.0-47.0); Hemoglobin 12.1 g/dl (12.0-16.0); Imm Gran Abs Auto 0.03 X10*3/uL (0.00-0.03); Imm Gran Pct Auto 0.5 % (0.0-0.4); Lymphocytes Absolute Auto 1.9 X10*3/uL (1.2-4.9); Lymphocytes Percent Auto 29.7 % (20-40); Mean Corpuscular HGB Conc 32.8 g/dl (31.0-35.0); Mean Corpuscular Hemoglobin 27.9 pg (27.0-33.0); Mean Platelet Volume 10.9 fL (9.4-12.3); Monocytes Absolute Auto 0.5 X10*3/uL (0.1-1.2); Monocytes Percent Auto 7.1 % (2-11); Neutrophils Absolute Auto 3.8 x10*3/uL (2.0-8.3); Neutrophils Percent Auto 58.4 % (45-73); Platelet Count 287 X10*3/uL (160-400); Red Blood Count 4.34 X10*6/uL (4.20-5.50); Red Cell Distribution Width 13.7 % (11.0-16.0); White Blood Count 6.5 X10*3/uL (4.8-10.8)
[2023-07-11 17:28] LABS: Appearance Urine Clear; Color Urine Dark Yellow; Glucose Urine UA Negative (Negative); Leukocyte Esterase Urine Negative (Negative); Nitrite Urine Negative (Negative); PH 5.5 (5.0-9.0); Specific Gravity - Urine >= 1.030 (1.005-1.025); UMIC TRIGGER UACC YES; Urine Blood Large (3+) (Negative); Urine Ketones 15 mg/dL (Negative); Urine Protein 30 (1+) mg/dL (Neg-Trace)
[2023-07-11 17:31] LABS: Bacteria Urine None Seen (None Seen); Hyaline Casts Urine 0-2 /LPF (0-2); RBC Urine >20 /HPF (0-2); WBC Urine 0-5 /HPF (0-5)
[2023-07-11 17:57] LABS: Erythrocyte Sedimentation Rate 6 MM/HR (0-20)
[2023-07-11 18:21] LABS: Alanine Aminotransferase 12 U/L (0-31); Albumin Level 4.3 g/dL (3.5-5.0); Alkaline Phosphatase 89 U/L (39-117); Anion Gap 14 (12-20); Aspartate Amino Transferase 18 U/L (5-31); Bilirubin Total 0.3 mg/dL (0.0-1.0); Blood Urea Nitrogen 10 mg/dL (9-16); Calcium 9.7 mg/dL (8.4-10.2); Carbon Dioxide 25 mmol/L (22-29); Chloride 108 mmol/L (96-108); Estimated Glomerular Filt Rate > 60; Glucose Random 85 mg/dL (60-115); Potassium 3.8 mmol/L (3.3-5.1); Sodium 143 mmol/L (135-145); Total Protein 7.4 g/dL (6.5-8.0)
[2023-07-11 19:35] LABS: Monotest Negative (Negative)
[2023-07-12 17:44] LABS: Lyme Abs Screen <0.90 index
== END 2023-07-11 15:34 | disposition home or self-care (01) ==
LOC: HO.LAB 15:33
PROVIDERS: PCP Internal Medicine; Visit Provider Internal Medicine
DX: R59.1 Generalized enlarged lymph nodes (principal); M79.7 Fibromyalgia; D64.9 Anemia, unspecified; R59.0 Localized enlarged lymph nodes
CPT/HCPCS: 36415; 70360; 80053; 81001; 85025; 85652; 86140; 86308; 86617; 86618

== ENCOUNTER 2023-11-27 09:27 | Outpatient (AMB) | payer OTHER, SELFPAY ==
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
[2023-11-27 09:35] VITALS: BP 130/80; PULSE 72; O2SAT 98; BMI 26.0
== END 2023-11-27 10:02 | disposition home or self-care (01) ==
PROVIDERS: PCP Internal Medicine; Visit Provider Physician Assistant
DX: R23.3 Spontaneous ecchymoses (principal); W50.3XXA Accidental bite by another person, initial encounter; Z04.2 Encounter for examination and observation following work accident

== ENCOUNTER → 2023-11-27 09:27 | Outpatient (BNVA) | payer OTHER, SELFPAY | PROVIDERS: PCP Internal Medicine | DX: S49.81XA Other specified injuries of right shoulder and upper arm, initial encounter (principal); W50.3XXA Accidental bite by another person, initial encounter; Y93.9 Activity, unspecified; Y92.9 Unspecified place or not applicable; Y99.0 Civilian activity done for income or pay | CPT/HCPCS: 99212 ==

== ENCOUNTER 2024-01-23 15:37 | Emergency (ER) | payer OTHER, SELFPAY ==
--- NOTE | ~2024-01-23 | XR_ITS ---
EXAMINATION: XR ANKLE, LEFT CLINICAL INFORMATION: sprain COMPARISON: None TECHNIQUE: AP, lateral, and mortise views of the left ankle. FINDINGS: There is soft tissue swelling and most likely undisplaced fracture through the lateral malleolus, visualized on the lateral view only XR/XR ankle LT min 3V IMPRESSION: Undisplaced fracture of lateral malleolus on the left Electronically signed by: Norris Armstrong MD 01/23/2024 06:54 PM EST RP
--- NOTE | ~2024-01-23 | XR_ITS ---
EXAMINATION: XR FOOT, LEFT CLINICAL INFORMATION: pain s/p fall COMPARISON: None available. TECHNIQUE: AP, lateral, and oblique views of the left foot. FINDINGS: The bones and soft tissues are normal. No fracture. Alignment is anatomic. Joint spaces are maintained. XR/XR foot LT min 3V IMPRESSION: Normal left foot. Electronically signed by: Norris Armstrong MD 01/23/2024 06:54 PM EST
[2024-01-23 15:57] VITALS: BP 124/84; PULSE 86; RESP 18; TEMP 36.9; O2SAT 100; BMI 29.2
--- NOTE | 2024-01-23 15:57 | ED.GENADULT ---
HPI - General Adult General Chief complaint: General Medical Stated complaint: Sore throat/L ankle sprain Time Seen by Provider: 01/23/24 20:17 Source: patient Limitations: no limitations History of Present Illness ED Provider: Evonne Negron PA-C HPI narrative: 33-year-old female presents with multiple complaints. Patient states she developed a sore throat over the past 3-4 days. Denies fever, concurrent cough or cold symptoms. In addition, patient was walking down the stairs, she missed the last step, subsequently rolling her left ankle, the incident occurred 3 days ago. Patient has been able to bear weight, however it is becoming increasingly painful. Associated mild swelling. Related Data Previous Rx's ?Medication ?Instructions ?Recorded penicillin V potassium 500 mg 500 mg PO BID #14 tabs 01/23/24 tablet Allergies Allergy/AdvReac Type Severity Reaction Status Date / Time No Known Allergies Allergy Verified 01/23/24 16:00 Review of Systems Review of Systems: Yes all other systems are reviewed and are negative Constitutional: Constitutional: Denies fatigue and Denies fever(s) ENT: Denies nasal discharge and Reports sore throat Cardiovascular: Cardiovascular: Denies chest pain and Denies dyspnea Respiratory: Respiratory: Denies cough and Denies dyspnea Musculoskeletal: Musculoskeletal: Reports arthralgias and Reports joint swelling Endocrine: Endocrine: Denies fatigue PMFSH Past Medical History Attestation statement: The following information was validated with the patient. Medical History Obesity (BMI 30-39.9) Back pain Threatened Chronic ankle pain Urge urinary incontinence Surgical History Previous section Family History Family History Mother Thyroid disease Maternal Grandmother Diabetes mellitus HTN (hypertension) Breast cancer Social History Social History Housing: Apartment Alcohol intake: current Alcohol intake frequency: does not drink Patient Tobacco Use Status: Former Tobacco user e-Cigarette/Vaping Use: Never Used Second Hand Smoke Exposure: Yes Advance Directives: No Advance Directives Information Provided: Yes Do you have a plan to hurt others: No Plan service: No Current occupational status: employed Gender identity: Female Cognitive needs: No Hearing needs: No Vision needs: Yes Physical Exam ED Vital Signs: Vital Signs - 24 hr 01/23/24 15:57 01/23/24 20:35 Temperature 98.5 F 98.1 F Pulse Rate 86 80 Respiratory Rate 18 22 H Blood Pressure 124/84 119/77 Pulse Oximetry 100 99 Oxygen Delivery Method Room Air Room Air BMI result Body Mass Index 29.2 Const Other: Alert, well-appearing Orientation/consciousness: patient oriented x3 HENMT Other: Oropharynx is erythematous, tonsils mildly enlarged, no overlying exudate, uvula midline, no sublingual fluctuance, no trismus no drooling Neck Other: Anterior cervical lymphadenopathy Resp Other: Nonlabored respiration Cardio Other: Normal peripheral perfusion Skin Other: Warm dry no rash Neuro Other: Antalgic gait General: patient oriented x3, no focal motor deficits and CN's II-XI intact bilaterally Extrem Other: Minimal swelling along lateral aspect of the ankle, minimal flexion and extension from the ankle secondary to pain but can perform some degree of range of motion Psych Other: Calm cooperative Course Course Course Narrative: This is a Rapid Medical Examination (RME) performed by Javier Chicas PA-C in triage. Full HPI, ROS, assessment and treatment plan per primary provider in the Main ED. 33 yo female presents to the ER for evaluation of 8/10 left foot and ankle pain after she twisted her ankle 5 days ago while walking down stairs. Pain worse w/ ambulation. also reports sore throat, cough, runny nose for the last 3-4 days. her son has URI symptoms. no fever, chest pain or difficulty breathing. Plan: XR left foot/ankle, viral and strep swabs Medical Decision Making Medical Decision Making MDM Narrative: 33-year-old female presents with multiple complaints. Patient states she developed a sore throat over the past 3-4 days. Denies fever, concurrent cough or cold symptoms. In addition, patient was walking down the stairs, she missed the last step, subsequently rolling her left ankle, the incident occurred 3 days ago. Patient has been able to bear weight, however it is becoming increasingly painful. Associated mild swelling. No relevant chronic issues History: Per patient I have considered the following differential diagnoses: Viral syndrome, strep pharyngitis, RPA, CARPENTER REPAIR, fracture, dislocation, sprain Plan: X-rays were obtained from triage, strep screen as well. She has strep throat and she has a lateral malleolar fracture that is minimal I can barely detect on the x-ray. We will place her in a walking boot, some of crutches, giving 1st dose of penicillin here. She has no exam findings consistent with RPA or CARPENTER REPAIR. I have independently reviewed the following tests: Labs: Strep positive X-ray left foot: XR/XR foot LT min 3V IMPRESSION: Normal left foot. Electronically signed by: Norris Armstrong MD 01/23/2024 06:54 PM EST RP X-ray left ankle: XR/XR ankle LT min 3V IMPRESSION: Undisplaced fracture of lateral malleolus on the left Electronically signed by: Norris Armstrong MD 01/23/2024 06:54 PM EST RP Lab Data Labs: Lab Results 01/23/24 Range/Units 17:25 Influenza Type A (PCR) NEGATIVE (Negative) Influenza Type B (PCR) NEGATIVE (Negative) RSV RNA Qual (PCR) NEGATIVE (Negative) SARS-CoV-2 RNA (RT-PCR) NEGATIVE (Negative) S. pyogenes GrpA MADDIE Positive A (Negative) Discharge Plan Discharge Clinical Impression: Closed fracture of left lateral malleolus, Pharyngitis due to group A beta hemolytic Streptococci Patient Disposition: Home, Self-Care Instructions: Ankle Fracture (ED), Strep Throat (ED) Additional Instructions: You were found to have a fracture of the fibula, this is a bone that runs on the lateral aspect of your leg. It is likely from a bad sprain. Use the walking boot and the crutches as needed to ambulate. Bear weight as tolerated. Use [id number] ibuprofen 600 mg taken every 6 hours with food, alternated with [id number] Tylenol 1000 mg taken every 8 hours, for pain. You also tested positive for strep throat. Use the penicillin as directed. You need to follow up with your primary care as needed. I am sending you with a contact for the orthopedic service, call for a follow up appointment. There is likely no intervention, the fracture will heal on its own. Prescriptions: New penicillin V potassium 500 mg tablet 500 mg PO BID Qty: 14 0RF Referrals: Ziggy Nelson MD [Physician] - Stand Alone Forms: Work/School Release Print Language: Kazakh
[2024-01-23 17:36] LABS: IDNOW Serial# 58CA691E; Strep A Nucleic Acid Positive (Negative)
[2024-01-23 18:08] LABS: Influenza A PCR NEGATIVE (Negative); Influenza B PCR NEGATIVE (Negative); Resp Syncy Virus RNA Qual PCR NEGATIVE (Negative); SARS COV2 PCR INHOUSE NEGATIVE (Negative)
[2024-01-23 20:35] VITALS: BP 119/77; PULSE 80; RESP 22; TEMP 36.7; O2SAT 99
[2024-01-23] MEDS: Penicillin V Potassium 250 MG TABLET 500 MG PO (21:17)
[2024-01-23] MEDS: Ketorolac Tromethamine 15 MG/ML VIAL IM (21:18)
[2024-01-23 21:20] VITALS: BP 119/77; PULSE 80; RESP 22; TEMP 36.7; O2SAT 99
== END 2024-01-23 21:21 | disposition home or self-care (01) ==
PROVIDERS: Physician Assistant; Emergency Provider Emergency Medicine Emergency Medical Services; PCP Internal Medicine
DX: J02.0 Streptococcal pharyngitis (principal); S82.62XA Displaced fracture of lateral malleolus of left fibula, initial encounter for closed fracture; W10.8XXA Fall (on) (from) other stairs and steps, initial encounter; Z03.818 Encounter for observation for suspected exposure to other biological agents ruled out; Y93.89 Activity, other specified; Y92.9 Unspecified place or not applicable; Y99.9 Unspecified external cause status
CPT/HCPCS: 0241U; 73610; 73630; 87651; 96372; 99284; J1885

== ENCOUNTER 2024-01-30 10:25 | Outpatient (AMB) | payer OTHER, SELFPAY ==
--- NOTE | 2024-01-30 10:34 | MHC.OFFVIS ---
Vital Signs 01/30/24 10:44 Height 5 ft 3 in Weight 165 lb BMI 29.2 Intake Visit Reasons: FC- ED f/u Left lateral mal fx Intake Note: Mica a 33 year old female who presents today for an ER follow up of left lateral malleolus fracture, DOI 01/20/24. Patient was walking down the stairs, she missed the last step, subsequently rolling her left ankle, the incident occurred 3 days prior to her [facility] ER visit. X-rays were taken and she was placed in a walking boot. Patient reports her pain has improved, however she continues to have pain at the lateral aspect of ankle. No numbness or tingling. Her current pain level is 5 out 10. States her pain increases with activity. She has been out of work since her injury. Allergies No Known Allergies Allergy (Verified 01/30/24 10:39) Medication List - Last Reconciled 01/30/24 by Gladys Stinson PA-C penicillin V potassium 500 mg PO BID HPI HPI FC- ED f/u Left lateral mal fx: Details: 33-year-old female who presents to the office today for an ER follow-up of left ankle injury, 01/20/24. She reports she was walking down the stairs when she missed the last step and rolled her ankle. She was seen at ER 3 days later where x-rays were performed and she was placed in a walking boot. She currently states she has improvement however she continues to have pain at the lateral aspect of her ankle and rates the pain as 5 on the scale of 0-10. Her pain is aggravated with getting up, twisting and activities. She denies any numbness or tingling. She has been out of work since her injury. 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 Gender identity: Female Cognitive needs: No Hearing needs: No Vision needs: Yes Female Reproductive History Menstrual Age of Menarche: 9 Review of Systems Const All systems reviewed & are unremarkable except as noted in HPI and below Physical Exam Vital Signs: BMI result Body Mass Index 29.2 Const General: cooperative, healthy appearing, comfortable, no acute distress, well developed and alert Orientation/consciousness: patient oriented x3 HEENT Head: Yes normal to inspection, Yes normocephalic and Yes atraumatic Eyes General: appearance normal, both eyes and all related structures Resp Effort & Inspection: normal respiratory effort and able to speak in complete sentences Cardio Rate: regular rate Peripheral pulses: Peripheral pulses 2+ throughout GI Palpation (GI): Soft to palpation Skin Lesions: no lesions Rashes: no rashes Neuro General: patient oriented x3 Extrem Other: Left ankle: Normal to inspection with mild swelling over the medial and lateral malleolus with tenderness along the soft tissues. Mild discomfort along the posterior aspect of the ankle, no deformity along the Achilles tendon, negative Garnica?s. No pain along the syndesmosis or anterior tibia. No laxity, NVI. Results Reviewed Results Reviewed: XR ankle LT min 3V IMPRESSION: Undisplaced fracture of lateral malleolus on the left Assessment & Plan Assessment & Plan (1) Left ankle sprain: Code(s): S93.402A - Sprain of unspecified ligament of left ankle, initial encounter Category: Medical Plan She will wear the boot for 2 weeks. She was given a lace up ankle brace so that she will ween out of the boot and transition to the brace. She was also given a course of physical therapy to work on ROM, gentle strengthening and proprioceptive training. She will remain out of work for 2 weeks and then return to work without restrictions. She will follow-up as needed. Orders: Orders PT Evaluation and Treatment Today S93.402A - Sprain of unspecified ligament of left ankle, initial encounter Patient Instructions: Scribed for Gladys Stinson PA-C, by pipe Wild scribe, on 01/30/2024 at 10:30 AM EST.? I, Gladys Stinson PA-C, have personally reviewed and agree with the information entered by the annmarie. Coding Level of Care Code New Pt Level 3 (78333) Complex EM visit Add On G2211 Diagnoses Left ankle sprain S93.402A
[2024-01-30 10:44] VITALS: BMI 29.2
== END 2024-01-30 11:24 | disposition home or self-care (01) ==
PROVIDERS: PCP Internal Medicine; Visit Provider Physician Assistant
DX: S93.402A Sprain of unspecified ligament of left ankle, initial encounter (principal)
CPT/HCPCS: 99203; G2211

== ENCOUNTER → 2024-01-30 10:25 | Outpatient (BNVA) | payer OTHER, SELFPAY | PROVIDERS: PCP Internal Medicine; Visit Provider Physician Assistant | DX: S93.402A Sprain of unspecified ligament of left ankle, initial encounter (principal); X58.XXXA Exposure to other specified factors, initial encounter; Y93.9 Activity, unspecified; Y92.9 Unspecified place or not applicable; Y99.9 Unspecified external cause status | CPT/HCPCS: 99202 ==

== ENCOUNTER 2024-02-20 14:45 | Outpatient (AMB) | payer OTHER, SELFPAY ==
[2024-02-20 14:46] VITALS: BP 110/72; PULSE 87; O2SAT 98; BMI 28.7
--- NOTE | 2024-02-20 14:46 | MHC.PC.OV ---
Vital Signs 02/20/24 14:46 Height 5 ft 3 in Weight 162 lb BMI 28.7 BP 110/72 Blood Pressure Location Lt brachial Position Sitting Pulse 87 Pulse Source Pulse Oximeter Pulse Oximetry (%) 98 Oxygen Delivery Method Room Air Intake Visit Reasons: annual exam Kettle Chipper Required: No Accompanied by: Self / Same As Patient Allergies No Known Allergies Allergy (Verified 02/25/24 15:50) Medication List - Last Reconciled 02/25/24 by Taras Vernon MD No Known Home Meds Tobacco use date assessed: 02/20/24 Dental Screening Dental Screen Date: 02/20/24 Did you have a dental visit in the last 12 months?: Yes Did you have a dental problem in the last 6 months where you did not have access to dental care?: No Was dental information given to patient?: Patient has dentist HPI annual exam HPI Details Patient comes in today for her annual physical examination States that she injured her left ankle last month while walking down the stairs - states that she missed the last step and subsequently rolled her left ankle She did not seek medical attention immediately but ended up going to the ER 3 days later for increasing pain in her ankle X-rays done at the ER revealed (+) non-displaced fracture of lateral malleolus on the left ankle, which fortunately did not require surgical intervention She currently has a soft brace on her left ankle and states that because she has had to alter the way she walks by shifting more of her weight to her other side, she has been experiencing increased pain over her lower back lately Adds that she has a history of discrepancy in the length of her legs as well as scoliosis in her lower back and thinks that these are also contributing to her increased low back pain lately She adds that her hair has thinned out a lot over the past few years and she is concerned that she may be getting bald and would like to have this checked out see what can be done to address her hair loss - states that she has tried a few [id number] treatments for hair growth over the past couple of years with no improvement or success Patient also states that she has a cyst or growth on the lateral side of her right foot that she thinks is getting bigger and more painful lately She denies any headaches or dizziness Denies any chest pains, no increased shortness of breath No nausea/vomiting, no abdominal pain No change in bowel habits noted She denies any acute urinary symptoms She last had her pap smear and annual gynecology exam done in September 2021 and has not seen her clinical reimbursement specialist since [facility] Medical History Obesity (BMI 30-39.9) Back pain Threatened Chronic ankle pain Urge urinary incontinence Surgical History Previous section Family History Mother Thyroid disease Maternal Grandmother Diabetes mellitus HTN (hypertension) Breast cancer Social History Housing: Apartment Alcohol intake: current Alcohol intake frequency: does not drink Patient Tobacco Use Status: Former Tobacco user e-Cigarette/Vaping Use: Never Used Second Hand Smoke Exposure: Yes service: No Current occupational status: employed 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 1. Little interest or pleasure in doing things: not at all 2. Feeling down, depressed, or hopeless: not at all 3. Trouble falling or staying asleep, or sleeping too much: not at all 4. Feeling tired or having little energy: not at all 5. Poor appetite or overeating: not at all 6. Feeling bad about yourself - or that you are a failure or have let yourself or your family down: not at all 7. Trouble concentrating on things, such as reading the newspaper or watching television: not at all 8. Moving or speaking so slowly that other people could have noticed. Or the opposite - being so fidgety or restless that you have been moving around a lot more than usual: not at all 9. Thoughts that you would be better off or of hurting yourself in some way: not at all Total score: 0 Depression Screening Interpretation: Negative Depression Screening Done: Yes 81246 - PHQ-9 Billing: Yes Source: Developed by Drs. Leland Cuevas, Micha Guillen and colleagues, with an educational manuel from [employer]. Thrive Questionnaire Date Thrive assessed: 02/20/24 I am a: Patient What is your living situation today?: I have a steady place to live Within the past 12 months, did the food you bought not last and you didn't have the money to get more?: Never true Within the past 12 months, did you worry whether your food would run out before you got money to buy more?: Never true Do you have trouble paying for medicines?: No Do you have trouble getting transportation to medical appointments?: No Do you have trouble paying your heating and electricity bill?: No Do you have trouble taking care of your child, family member or friend?: No Do you have trouble with day-to-day activities such as bathing, preparing meals, shopping, managing finances, etc.?: No Are you currently unemployed and looking for a job?: No Are you interested in more education?: No Please select the resources that you would like help with: None Currently or been in a relationship where the following occur: No concerns reported THRIVE Score: 0 AUDIT C Alcohol Use Questionnaire (AUDIT-C) 1. How often do you have a drink containing alcohol?: Monthly or less 2. How many drinks containing alcohol do you have on a typical day when you are drinking?: 1 or 2 3. How often do you have six or more drinks on one occasion?: Never Total Score: 1 Score Reviewed/Action Taken: Yes CECILIA-7 AMB Questionnaire CECILIA-7 Date CECILIA - 7 assessed: 02/20/24 Feeling nervous, anxious, or on edge: 0 = Not at all Not being able to stop or control worryin = Not at all Worrying too much about different things: 0 = Not at all Trouble relaxin = Not at all Being so restless that it is hard to sit still: 0 = Not at all Becoming easily annoyed or irritable: 0 = Not at all Feeling afraid as if something awful might happen: 0 = Not at all Total CECILIA-7 score (0-4 normal; 5-9 mild; 10-14 moderate; 15-21 severe): 0 Source: Developed by Eileen Land Kurt Kroenke and colleagues, with an educational manuel from [employer]. Review of Systems Const Denies chills, Reports fatigue, Denies fever(s), Denies headache(s) and Denies malaise Eyes Denies blurry vision, Denies change in vision, Denies irritation and Denies itchy eyes ENT Denies dysphagia, Denies dizziness, Denies otalgia, Denies headache(s), Denies nasal congestion, Denies neck pain, Denies odynophagia, Denies sinus pain and Denies sore throat Card Denies chest pain, Denies rapid heart rate, Denies irregular heart rhythm, Denies palpitations and Denies dyspnea Resp Denies chest congestion, Denies cough, Denies dyspnea and Denies wheezing GI Denies abdominal pain, Denies bloating, Denies constipation, Denies dysphagia, Denies heartburn, Denies diarrhea, Denies nausea, Denies odynophagia and Denies vomiting Denies hematuria, Denies urinary frequency, Denies dysuria, Denies urinary incontinence and Denies urinary urgency Musc Details: (+) cyst on the lateral side of the right foot - getting bigger and more painful lately Reports back pain (over the lower back - increasing lately), Reports arthralgias (left ankle), Denies joint swelling, Denies muscle weakness and Denies neck pain Skin/Breast Denies breast pain, Denies breast mass, Denies change in pigmentation, Reports alopecia, Denies lesions, Denies rash and Denies unusual bruising Neuro Denies dizziness, Denies headache(s) and Denies paresthesias Psych Denies anxiety and Denies depression Endo Reports fatigue and Denies palpitations Terry/Lymph Denies easy bruising Aller/Immun Denies itchy eyes and Denies wheezing Physical exam (Primary Care) Vital Signs: Last Vital Signs Pulse 87 02/20/24 14:46 BP 110/72 02/20/24 14:46 Pulse Ox 98 02/20/24 14:46 Oxygen Delivery Method Room Air 02/20/24 14:46 BMI result Body Mass Index 28.7 Tobacco/Smoking Status: Tobacco use Status Tobacco use date assessed 02/20/24 02/20/24 14:53 Patient Tobacco Use Status Former Tobacco user 02/20/24 14:53 e-Cigarette/Vaping Use Never Used 02/20/24 14:53 PHQ-9: PHQ-9 Score PHQ-9: Total score 0 02/20/24 15:28 Depression Screening Interpretation: Negative Thrive Assessment: Date of Thrive Assessment Date Thrive assessed 02/20/24 02/20/24 14:53 Currently or been in a relationship where the following occur: No concerns reported Const General: no acute distress, alert and awake Orientation/consciousness: patient oriented x3 HENMT Head: Yes normocephalic and Yes atraumatic Ears: external ears normal, TM's normal bilaterally and EAC's normal General nose exam: No nasal discharge present Face and sinus: Yes normal facial exam and Yes sinuses nontender Teeth and gingiva: dentition normal Throat: Yes posterior oropharynx normal and Yes tonsils normal (no TP congestion) Eyes Eyelids: Yes eyelids normal Conjunctivae: conjunctivae normal Pupils: Equal, round and reactive pupils present EOM: EOMs intact bilaterally Neck Neck: Yes supple and No lymphadenopathy Thyroid: Thyroid normal Resp Auscultation: clear to auscultation bilaterally, no rales and no wheezes Cardio Rate: regular rate Rhythm: regular rhythm Heart sounds: no murmurs GI Palpation (GI): Soft to palpation, nontender and No hepatosplenomegaly present Auscultation: normal bowel sounds General: Yes no CVA tenderness Back/Spine/Pelvis Back: no CVA tenderness Thoracic/Lumbar Spine: lumbar spinal tenderness Skin Lesions: no lesions Rashes: no rashes Hair: general thinning Neuro General: patient oriented x3, moves all extremities, no focal motor deficits and CN's II-XI intact bilaterally Cranial nerves: Yes Equal, round and reactive pupils present Cognition (Neuro): normal cognition Gait exam (Neuro): Normal gait present Extrem General: Yes no clubbing, cyanosis or edema Right lower extremity: foot ((+) bunionette on the right foot) Left lower extremity: ankle ((+) soft cast on the left ankle) Details: tenderness Coding Level of Care Code Est Pt Prev Care 18-39y([id number]) Diagnoses Annual physical exam Z00.00 Leg length discrepancy M21.70 Closed fracture of left ankle, sequela S82.892S Encounter type: sequela Hair thinning L65.9 Bunionette of right foot M21.621 Other back pain, unspecified chronicity M54.89 Back pain location: back pain in other location Chronicity: unspecified Overweight (BMI 25.0-29.9) E66.3 Cervical cancer screening Z12.4 Additional Codes PHQ-9 - 52243 - PHQ-9 Billing: Yes ([id number]) Assessment & Plan Assessment & Plan (1) Annual physical exam: Code(s): Z00.00 - Encounter for general adult medical examination without abnormal findings Category: Medical Plan: Check labs (2) Leg length discrepancy: Code(s): M21.70 - Unequal limb length (acquired), unspecified site Category: Medical Plan: Will refer her to Physical therapy for further evaluation and management and if she does indeed have a discrepancy in the lengths of her lower extremities, she will likely need corrective shoes/footwear at some point to help correct the deficit (3) Closed left ankle fracture: Code(s): S82.892A - Other fracture of left lower leg, initial encounter for closed fracture Category: Medical Qualifiers: Encounter type: sequela Qualified Code(s): S82.892S - Other fracture of left lower leg, sequela Plan: X-rays of the left ankle done at the ER last month revealed a nondisplaced fracture of the lateral malleolar area of the left ankle She was advised that she does not require surgery and currently still has a soft brace/cast on her left ankle Follow-up with orthopedics as scheduled (4) Hair thinning: Code(s): L65.9 - Nonscarring hair loss, unspecified Category: Medical Plan: Will refer her to Dermatology for further evaluation and management Will also send her for some labs today together with her routine labs for further evaluation of this issue (5) Bunionette of right foot: Code(s): M21.621 - Bunionette of right foot Category: Medical Plan: Will refer to Podiatry for further management of her tailor's bunion (6) Back pain: Comment: Patient states she has scoliosis Code(s): M54.9 - Dorsalgia, unspecified Category: Medical Qualifiers: Back pain location: back pain in other location Chronicity: unspecified Qualified Code(s): M54.89 - Other dorsalgia Plan: Will send patient for x-rays of the thoracic and lumbar spine for further evaluation and to assess her claims of scoliosis (7) Overweight (BMI 25.0-29.9): Code(s): E66.3 - Overweight Category: Medical Plan: Reinforced diet/exercise as tolerated/lose weight (8) Cervical cancer screening: Comment: abnl 2019 pap neg 02/2020. pap done 09/10/21=neg w neg hpv. Code(s): Z12.4 - Encounter for screening for malignant neoplasm of cervix Category: Medical Plan: [facility] and Pap smear Plan Follow-up in 6 months Orders: Orders XR thoracic spine 3V 02/20/24 M54.9 - Dorsalgia, unspecified, Z87.39 - Personal history of other diseases of the musculoskeletal system and connective tissue XR lumbar spine 2-3V 02/20/24 M54.50 - Low back pain, unspecified, Z87.39 - Personal history of other diseases of the musculoskeletal system and connective tissue Lipid Panel 02/20/24 E78.00 - Pure hypercholesterolemia, unspecified, Z00.00 - Encounter for general adult medical examination without abnormal findings TSH reflex Free T4 02/20/24 E78.00 - Pure hypercholesterolemia, unspecified, Z00.00 - Encounter for general adult medical examination without abnormal findings UA CC w/rflx Micro + Cult 02/20/24 R30.0 - Dysuria, Z00.00 - Encounter for general adult medical examination without abnormal findings Magnesium 02/20/24 E83.42 - Hypomagnesemia, Z00.00 - Encounter for general adult medical examination without abnormal findings PT Evaluation and Treatment 02/20/24 M21.70 - Unequal limb length (acquired), unspecified site Complete Blood Count Auto Diff 02/20/24 D64.9 - Anemia, unspecified, Z00.00 - Encounter for general adult medical examination without abnormal findings Comprehensive [place]. Panel Fast 02/20/24 E78.00 - Pure hypercholesterolemia, unspecified, Z00.00 - Encounter for general adult medical examination without abnormal findings Vitamin D 25-OH Total 02/20/24 E55.9 - Vitamin D deficiency, unspecified, Z00.00 - Encounter for general adult medical examination without abnormal findings Referrals Podiatry Referral M21.621 - Bunionette of right foot [employer] Referral Z12.4 - Encounter for screening for malignant neoplasm of cervix Dermatology Referral L65.9 - Nonscarring hair loss, unspecified
== END 2024-02-20 15:38 | disposition home or self-care (01) ==
PROVIDERS: PCP Internal Medicine; Visit Provider Internal Medicine
DX: Z00.00 Encounter for general adult medical examination without abnormal findings (principal); M21.70 Unequal limb length (acquired), unspecified site; S82.892S Other fracture of left lower leg, sequela; L65.9 Nonscarring hair loss, unspecified; M21.621 Bunionette of right foot; M54.89 Other dorsalgia; E66.3 Overweight; Z12.4 Encounter for screening for malignant neoplasm of cervix

== ENCOUNTER → 2024-02-20 14:45 | Outpatient (BNVA) | payer OTHER, SELFPAY | PROVIDERS: PCP Internal Medicine; Visit Provider Internal Medicine | DX: Z00.00 Encounter for general adult medical examination without abnormal findings (principal); M21.70 Unequal limb length (acquired), unspecified site; S82.892S Other fracture of left lower leg, sequela; L65.9 Nonscarring hair loss, unspecified; M21.621 Bunionette of right foot; M54.89 Other dorsalgia; E66.3 Overweight; Z12.4 Encounter for screening for malignant neoplasm of cervix; X58.XXXD Exposure to other specified factors, subsequent encounter | CPT/HCPCS: 96127; 99395 ==

== ENCOUNTER 2024-02-26 09:59 | Outpatient (REF) | payer OTHER, SELFPAY ==
[2024-02-26 10:38] LABS: MANUAL DIFF FLAG NO
[2024-02-26 11:15] LABS: Basophils Absolute Auto 0.1 X10*3/uL (0.0-0.2); Basophils Percent Auto 0.7 % (0-2); Eosinophils Absolute Auto 0.5 X10*3/uL (0.0-0.4); Eosinophils Percent Auto 7.1 % (0-4); Hematocrit 38.5 % (37.0-47.0); Hemoglobin 12.8 g/dl (12.0-16.0); Imm Gran Abs Auto 0.01 X10*3/uL (0.00-0.03); Imm Gran Pct Auto 0.1 % (0.0-0.4); Lymphocytes Absolute Auto 1.4 X10*3/uL (1.2-4.9); Lymphocytes Percent Auto 20.9 % (20-40); Mean Corpuscular HGB Conc 33.2 g/dl (31.0-35.0); Mean Corpuscular Hemoglobin 28.1 pg (27.0-33.0); Mean Corpuscular Volume 84.6 fL (80.0-98.0); Mean Platelet Volume 10.7 fL (9.4-12.3); Monocytes Absolute Auto 0.5 X10*3/uL (0.1-1.2); Neutrophils Absolute Auto 4.3 x10*3/uL (2.0-8.3); Neutrophils Percent Auto 63.2 % (45-73); Platelet Count 277 X10*3/uL (160-400); Red Blood Count 4.55 X10*6/uL (4.20-5.50); White Blood Count 6.7 X10*3/uL (4.8-10.8)
[2024-02-26 11:45] LABS: Appearance Urine Clear; Color Urine Yellow; Glucose Urine UA Negative (Negative); Leukocyte Esterase Urine Trace (Negative); Nitrite Urine Negative (Negative); UMIC TRIGGER UACC YES; Urine Blood Negative (Negative); Urine Ketones Negative (Negative); Urine Protein Negative (Neg-Trace)
[2024-02-26 12:06] LABS: Bacteria Urine None Seen (None Seen); Hyaline Casts Urine 0-2 /LPF (0-2); RBC Urine 0-2 /HPF (0-2); WBC Urine 0-5 /HPF (0-5)
[2024-02-26 12:18] LABS: Alanine Aminotransferase 17 U/L (0-31); Albumin Level 4.2 g/dL (3.5-5.0); Alkaline Phosphatase 87 U/L (39-117); Anion Gap 9 (12-20); Aspartate Amino Transferase 18 U/L (5-31); Bilirubin Total 0.3 mg/dL (0.0-1.0); Blood Urea Nitrogen 9 mg/dL (9-16); Calcium 8.9 mg/dL (8.4-10.2); Carbon Dioxide 27 mmol/L (22-29); Chloride 107 mmol/L (96-108); Cholesterol 159 mg/dL (<200); Estimated Glomerular Filt Rate > 60; Glucose Fasting 93 mg/dL (60-99); HDL Cholesterol 45 mg/dL (>40); LDL Cholesterol Calculated 82 mg/dL (<100); Sodium 139 mmol/L (135-145); Total Protein 7.2 g/dL (6.5-8.0); Triglycerides 163 mg/dL (<150)
[2024-02-26 12:25] LABS: TSH reflex Free T4 1.51 uIU/mL (0.32-4.0); Vitamin D 25-OH Total 29.1 ng/mL (>30)
== END 2024-02-26 10:00 | disposition home or self-care (01) ==
LOC: HO.LAB 09:59
PROVIDERS: PCP Internal Medicine; Visit Provider Internal Medicine
DX: Z00.00 Encounter for general adult medical examination without abnormal findings (principal); M54.50 Low back pain, unspecified; M54.9 Dorsalgia, unspecified; Z87.39 Personal history of other diseases of the musculoskeletal system and connective tissue; E78.00 Pure hypercholesterolemia, unspecified; D64.9 Anemia, unspecified; E83.52 Hypercalcemia
CPT/HCPCS: 36415; 72072; 72100; 80053; 80061; 81001; 81003; 82306; 83735; 84443; 85025

== ENCOUNTER 2024-04-01 10:48 | Outpatient (AMB) | payer OTHER, SELFPAY ==
--- NOTE | 2024-04-01 10:54 | MHC.OFFVIS ---
Intake Visit Reasons: ov-LT lateral malleolus fx, DOI 01/20/24. Intake Note: Mica a 33 year old female who presents today for a follow up of left lateral malleolus fracture, DOI 01/20/24. Patient reports frequent clicking and popping in her ankle. Her pain increases with ROM. States going on her tippy toes causes pain. She has been attended PT with her first appointment on 03/28/24. Allergies No Known Allergies Allergy (Verified 04/01/24 11:02) HPI HPI ov-LT lateral malleolus fx, DOI 01/20/24. : Details: 33-year-old female returns to the office today for a left ankle sprain. She states she started physical therapy on March 28. She has some stiffness in the left ankle and some sensations of popping with certain movement. She has been able to participate in most activities without limitations. 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 Gender identity: Female Cognitive needs: No Hearing needs: No Vision needs: Yes Female Reproductive History Menstrual Age of Menarche: 9 Review of Systems Const All systems reviewed & are unremarkable except as noted in HPI and below Physical Exam Const General: cooperative, healthy appearing, comfortable, no acute distress, well developed and alert Orientation/consciousness: patient oriented x3 HEENT Head: Yes normal to inspection, Yes normocephalic and Yes atraumatic Eyes General: appearance normal, both eyes and all related structures Resp Effort & Inspection: normal respiratory effort and able to speak in complete sentences Cardio Rate: regular rate Peripheral pulses: Peripheral pulses 2+ throughout GI Palpation (GI): Soft to palpation Skin Lesions: no lesions Rashes: no rashes Neuro General: patient oriented x3 Extrem Other: Left ankle: Normal to inspection , no swelling or tenderness present. Mild discomfort along the posterior aspect of the ankle, no deformity along the Achilles tendon, negative Garnica?s. No pain along the syndesmosis or anterior tibia. No laxity, NVI. Assessment & Plan Assessment & Plan (1) Left ankle sprain: Code(s): S93.402A - Sprain of unspecified ligament of left ankle, initial encounter Category: Medical Plan: And shows the importance of continuing to work with physical therapy to regain her strength and mobility. She will increase activities as tolerated and if symptoms persist or worsen she will contact our office otherwise follow up as needed. Coding Level of Care Code Est Pt Level 3 (86675) Complex EM visit Add On G2211 Diagnoses Left ankle sprain S93.402A
== END 2024-04-01 11:40 | disposition home or self-care (01) ==
PROVIDERS: PCP Internal Medicine; Visit Provider Physician Assistant
DX: S93.402A Sprain of unspecified ligament of left ankle, initial encounter (principal)
CPT/HCPCS: 99213

== ENCOUNTER → 2024-04-01 10:48 | Outpatient (BNVA) | payer OTHER, SELFPAY | PROVIDERS: PCP Internal Medicine; Visit Provider Physician Assistant | DX: S93.402D Sprain of unspecified ligament of left ankle, subsequent encounter (principal); M25.672 Stiffness of left ankle, not elsewhere classified; X58.XXXD Exposure to other specified factors, subsequent encounter; Z87.81 Personal history of (healed) traumatic fracture | CPT/HCPCS: 99212 ==

== ENCOUNTER 2024-04-30 10:15 | Outpatient (AMB) | payer OTHER, SELFPAY ==
[2024-04-30 10:20] VITALS: BP 118/70; BMI 29.4
--- NOTE | 2024-04-30 10:20 | MHC.OFFVIS ---
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 She found out on April 10 because she was feeling different as if she might be even though her period was not technically late at the time her LMP had been March 15. She had stopped control but then was sexually active with the father of her 2-year-old after stopping control. He has told her he is not interested in having another child but she can not bring herself to that decision and so she is going to continue the .. She delivered her 1st child 14 years ago vaginally at [facility] but her 2nd child she was receiving care at [facility] and then went to the emergency room with various symptoms ( uri/neuro) and was told she had RSV at 36 weeks, was sent home and very next day had a severe pain at the top of her uterus returned to the hospital and was sent to [facility] where she ended up having an emergency . She said it was really a horrible experience in that she was pretty out of it and was extremely sick, and actually thought that she might , and she was isolated from her baby because of the RSV. She had plan to nurse but obviously could not. Because of that and knowing that she is at high-risk she has already made an appointment at [facility] and has the tracer bullet charging machine operator on next coming Monday 3 7 at [facility] to initiate her care. 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 Gender identity: Female Cognitive needs: No Hearing needs: No Vision needs: Yes Female Reproductive History Menstrual Age of Menarche: 9 Duration of menses: 3-5 days Date of last menstrual period: 04/15/24 control method: none Total pregnancies: 3 Full term: 2 Date of last pap smear: 09/14/21 (negative,2019 WNL) History of abnormal pap smear: No Physical Exam Vital Signs: Last Vital Signs BP 118/70 04/30/24 10:20 BMI result Body Mass Index 29.4 External Female Exam: normal external appearance Speculum Exam - Vagina: normal vaginal discharge Bimanual exam- vagina & uterus: normal bimanual exam, uterine size normal (Anteverted consistent with about 6 weeks globular.), consistency normal (Slightly softened consistent with the early .), uterine mobility normal, uterine shape normal and non-tender Bimanual Exam- Adnexa, other: normal adnexae, no masses and No adnexal tenderness Results AMB Test Urine AMB Test Urine Positive Last Edit by Marline Wilkes CMA on 04/30/24 11:21 Results Reviewed Results Reviewed: Name: Mica Salas Age/Sex: 29/F Attending: Aleida Santiago CNM : 1990 Submitted by: Aleida Santiago CNM Copies to: MR #: [id number] Status: DEP REF Collected: 03/02/20 Location: [facility] Received: 03/04/20 Interpretation Satisfactory for evaluation. Negative for intraepithelial lesion or malignancy. HPV mRNA E6/E7: NOT DETECTED This assay detects E6/E7 viral messenger RNA (mRNA) from 14 high-risk HPV types (16, 18, 31, 33, 35, 39, 45, 51, 52, 56, 58, 59, 66, 68) HPV testing performed by [facility], [place], [place]. See reference laboratory portion of the EMR for entire report. Clinical Information LMP: 02/21/2020 Previous PAP test: 06/14/2013, wnl Material Received ThinPrep cervical Electronically Signed By: NATY Grant (ASCP) 03/11/20 1531 The Pap Test is a screening procedure with the inherent possibility of both false negative and false positive results. Results should be interpreted in the context of historic and current clinical findings. Reliability of the Pap Test is enhanced by performing the test on a regular repetitive basis. Patient: Mica Salas Age/Sex: 29/F MR#: [id number] Page 1 of 1 Name: Mica Salas Age/Sex: 31/F Attending: Britney Colon CNM : 1990 Submitted by: Britney Colon CNM Copies to: Taras Vernon MD MR #: [id number] Status: DEP REF Collected: 09/10/21 Location: [facility] Received: 09/14/21 Interpretation Satisfactory for evaluation. No endocervical cells seen. Mild inflammation. Negative for intraepithelial lesion or malignancy. HPV mRNA E6/E7: NOT DETECTED This assay detects E6/E7 viral messenger RNA (mRNA) from 14 high-risk HPV types (16, 18, 31, 33, 35, 39, 45, 51, 52, 56, 58, 59, 66, 68) HPV testing performed by [facility], [place], [place]. See reference laboratory pion of the EMR for entire report. Clinical Information LMP: Unknown date Previous PAP test: 03/04/20, WNL Material Received ThinPrep-Cervical Copies To Taras Vernon MD [address] [place] [address] Britney Colon [address] [place] [address] Electronically Signed By: NATY Grant (ASCP) 09/21/21 0907 The Pap Test is a screening procedure with the inherent possibility of both false negative and false positive results. 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 Code(s): Z34.90 - Encounter for supervision of normal , unspecified, unspecified trimester Category: Medical (2) Well woman exam with routine gynecological exam: Comment: not due for pap, newly preg, starting PNCare at [facility] next week, no sti concerns, sti testing deferred Code(s): Z01.419 - Encounter for gynecological examination (general) (routine) without abnormal findings Category: Medical (3) Supervision provided for high risk with history of previous delivery: Comment: Patient seen for a scheduled annual with approximately 6 weeks gestation LMP March 15, already has a appointment to initiate care at [facility] on May 10 2024 size equals dates. Rx for vitamins sent. Code(s): O09.90 - Supervision of high risk , unspecified, unspecified trimester; Z98.891 - History of uterine scar from previous surgery Category: Medical Plan Annual exam not done however I did review her previous history and her plans and the fumes and how she feels about this and supports she does and does not have periods she does not drive however she says her family in mother and sisters and other family members will help her and she has already made her appointment for care to start next Monday at [facility]. She has her telephone intake on 05/10/2024. I supported that she has certainly made the right decision in the she definitely would be high-risk because of a previous . 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 Reviewed early . Since she is starting care early at [facility] there will be the opportunity to schedule any testing that is appropriate for her including any dating ultrasounds. I did send a prescription for vitamins to her pharmacy. If she has any untoward symptoms to seek emergency care. She can sign to have any records from today sent but we did not do any testing other than confirmation of the test. She was size equals dates on bimanual exam, 6 7w. Orders: Orders AMB HCG Urine Test Today Z32.01 - Encounter for test, result positive Medications: New PNV,calcium 35-vqpo-lyzrh acid 27 mg iron- 1 mg ( Vitamins Plus Low Iron) 1 tab PO DAILY 90 tabs 0RF Coding Level of Care Code Est Pt Level 3 (72453) Complex EM visit Add On G2211 Diagnoses Early stage of Z34.90 Well woman exam with routine gynecological exam Z01.419 Supervision provided for high risk with history of previous delivery O09.90; Z98.891 Time Spent (min) 45 Comment Time spent reviewing her plan of care around
== END 2024-04-30 11:24 | disposition home or self-care (01) ==
PROVIDERS: PCP Internal Medicine; Visit Provider Advanced Practice Midwife
DX: Z34.90 Encounter for supervision of normal pregnancy, unspecified, unspecified trimester (principal); Z01.419 Encounter for gynecological examination (general) (routine) without abnormal findings; O09.90 Supervision of high risk pregnancy, unspecified, unspecified trimester; Z98.891 History of uterine scar from previous surgery; Z32.01 Encounter for pregnancy test, result positive
CPT/HCPCS: 99213; G2211

== ENCOUNTER → 2024-04-30 10:15 | Outpatient (BNVA) | payer OTHER, SELFPAY | PROVIDERS: PCP Internal Medicine; Visit Provider Advanced Practice Midwife | DX: Z01.419 Encounter for gynecological examination (general) (routine) without abnormal findings (principal); O09.90 Supervision of high risk pregnancy, unspecified, unspecified trimester; O34.29 Maternal care due to uterine scar from other previous surgery | CPT/HCPCS: 81025; 99212 ==

== ENCOUNTER 2024-05-14 10:44 | Outpatient (RCR) | payer OTHER, SELFPAY ==
--- NOTE | 2024-03-28 11:22 | MHC.PT.EP ---
[facility] Office [place] Office [place] [facility] [address] Block [address] [phone] F: [phone] F: [phone] F: [phone] F: [phone] Physical Therapy Plan of Care Date of Evaluation: 03/28/24 Date of Surgery: Diagnosis: sprain of unspecified ligament of L ankle L ankle sprain, ROM, gentle strength, proprioceptive training Assessment: 33 y/o female referred to PT with L ankle sprain. Pt sustained L nondisplaced lateral malleoli fx with ankle sprain on 01/20/24 after she missed last step on the stairs landing on L lateral ankle. She wore a boot for 2 weeks and then transitioned to lace- up brace which she does not wear consistently d/t bulkiness. Pain and difficulty with prolonged standing, walking, and stairs. Pt also reports scoliosis with leg length difference. Examination shows decreased L ankle ROM, decreased L ankle strength, L metatarsus adductus foot, impaired gait pattern, impaired L leg balance, and ?leg length difference. Recommend PT 2x/week for 5 weeks to address impairments, implement HEP, and optimize functional mobility. Frequency and Duration: The patient will be seen 2x/week for 5 weeks Short Term Goals: 3 weeks I with HEP Improve L ankle dorsiflexion to 10* Alf Goals: 5 weeks I with HEP and self management of sx Pt will be able to stand > 20 min with pain < 3/10 Pt will be able to ascend/ descend stairs in step to pattern with pain < 3/10 Treatment Plan: Modalities to reduce pain, spasms and effusion. Manual therapy to restore motion and function. Therapeutic exercise to improve strength and flexibility. Neuromuscular re-education for posture and balance. Therapeutic activities to return to functional activities of daily living. Electronically signed by: Silke Heath PT Please sign and return to therapist. Thank you for your referral.
--- NOTE | 2024-05-14 11:54 | MHC.PT.DC ---
[facility] [place] Office [place] Office [place] Office [address] Patria Block [address] [phone] F: [phone] F: [phone] F: [phone] F: [phone] Physical Therapy Discharge Report Diagnosis: sprain of unspecified ligament of L ankle L ankle sprain, ROM, gentle strength, proprioceptive training Date of Surgery: Date of Evaluation: 03/28/24 Date of Discharge: 05/14/24 Treatments to Date: 12 Cancellations to Date: 0 No Shows to Date: 0 Discharge Status: Achieved Goals Improved Function Independent with HEP Discharge Summary: Overall pt has made good progress with ankle ROM WNL, decreased pain, improved strength, and improved balance. Pt able to ambulate with normal gait pattern, ascend/ descend stairs in step through pattern, and reports improved overall function. LEFS 72/80. She has some limitations d/t scoliosis such as prolonged sitting and standing. D/c to I HEP at this time. Electronically signed by: Silke Heath PT Please sign and return to therapist. Thank you for your referral.
== END 2024-05-14 11:55 | disposition home or self-care (01) ==
LOC: HO.PT 10:44
PROVIDERS: PCP Internal Medicine; Visit Provider Physician Assistant
DX: M21.70 Unequal limb length (acquired), unspecified site (principal)
CPT/HCPCS: 97110; 97140; 97161; 97530

== ENCOUNTER 2024-09-26 09:52 | Outpatient (AMB) | payer OTHER, SELFPAY ==
--- NOTE | 2024-09-26 09:58 | MHC.PC.OV ---
Vital Signs 09/26/24 09:59 Height 5 ft 3 in Weight 176 lb 8 oz BMI 31.3 BP 104/66 Blood Pressure Location Lt brachial Position Sitting Pulse 89 Pulse Source Pulse Oximeter Temp 97.2 F Temp Source Temporal Artery Scan Pulse Oximetry (%) 98 Oxygen Delivery Method Room Air Intake Visit Reasons: 6 month f/u PHQ-9 needed. Wood Piler Required: No Accompanied by: Self / Same As Patient Allergies No Known Allergies Allergy (Verified 09/26/24 10:14) Medication List - Last Reconciled 09/26/24 by PAUL Partida PNV,calcium 09-ijza-oqxtf acid 27 mg iron- 1 mg ( Vitamins Plus Low Iron) 1 tab PO DAILY Tobacco use date assessed: 02/20/24 Dental Screening Dental Screen Date: 09/26/24 Did you have a dental visit in the last 12 months?: Yes Did you have a dental problem in the last 6 months where you did not have access to dental care?: No Was dental information given to patient?: Patient has dentist HPI 6 month f/u PHQ-9 needed. HPI Details The patient is a 34-year-old female presenting for follow appt. Reports that she was diagnosed with Alpha-Thalassemia silent carrier and associated symptoms during . Alpha-Thalassemia was identified through genetic testing, and the patient reports associated anemia, which affects her oxygen levels. She experiences persistent fatigue and dyspnea, particularly during physical exertion, and has a history of low iron levels, especially during previous pregnancies. The patient is currently and reports swelling in her left foot, which she attributes to her . She also experiences back pain, which is exacerbated by her , and uses supportive garments to alleviate discomfort. She reports intermittent headaches, primarily affecting her forehead, which have been ongoing for some time. The headaches do not affect her vision and are not associated with any neck tension. 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 1. Little interest or pleasure in doing things: not at all 2. Feeling down, depressed, or hopeless: not at all 3. Trouble falling or staying asleep, or sleeping too much: not at all 4. Feeling tired or having little energy: several days 5. Poor appetite or overeating: not at all 6. Feeling bad about yourself - or that you are a failure or have let yourself or your family down: not at all 7. Trouble concentrating on things, such as reading the newspaper or watching television: not at all 8. Moving or speaking so slowly that other people could have noticed. Or the opposite - being so fidgety or restless that you have been moving around a lot more than usual: not at all 9. Thoughts that you would be better off or of hurting yourself in some way: not at all Total score: 1 85208 - PHQ-9 Billing: Yes Source: Developed by Drs. Leland Cuevas, Eileen Villa, Micha Laura and colleagues, with an educational manuel from [employer]. Thrive Questionnaire Date Thrive assessed: 09/26/24 I am a: Patient What is your living situation today?: I have a steady place to live Within the past 12 months, did the food you bought not last and you didn't have the money to get more?: Never true Within the past 12 months, did you worry whether your food would run out before you got money to buy more?: Never true Do you have trouble paying for medicines?: No Do you have trouble getting transportation to medical appointments?: No Do you have trouble paying your heating and electricity bill?: No Do you have trouble taking care of your child, family member or friend?: No Do you have trouble with day-to-day activities such as bathing, preparing meals, shopping, managing finances, etc.?: No Are you currently unemployed and looking for a job?: No Are you interested in more education?: No Please select the resources that you would like help with: None Currently or been in a relationship where the following occur: No concerns reported THRIVE Score: 0 AUDIT C Alcohol Use Questionnaire (AUDIT-C) 1. How often do you have a drink containing alcohol?: Never Total Score: 0 CECILIA-7 AMB Questionnaire CECILIA-7 Date CECILIA - 7 assessed: 09/26/24 Feeling nervous, anxious, or on edge: 0 = Not at all Not being able to stop or control worryin = Not at all Worrying too much about different things: 0 = Not at all Trouble relaxin = Not at all Being so restless that it is hard to sit still: 0 = Not at all Becoming easily annoyed or irritable: 0 = Not at all Feeling afraid as if something awful might happen: 0 = Not at all Total CECILIA-7 score (0-4 normal; 5-9 mild; 10-14 moderate; 15-21 severe): 0 Source: Developed by Drs. Leland Cuevas, Eileen Villa, Micha Laura and colleagues, with an educational manuel from [employer]. CECILIA-7 Assessment Billing CECILIA-7 Assessment Tool: CECILIA-7 Assessment 61160 Review of Systems Const Reports fatigue and Reports headache(s) (ongoing, longstanding) Eyes Denies loss of vision ENT Denies vertigo, Denies dizziness, Reports headache(s) (ongoing, longstanding) and Denies sore throat Card Denies chest pain, Denies leg edema, Denies lightheadedness and Reports dyspnea on exertion Resp Denies cough, Denies hemoptysis, Reports dyspnea on exertion and Denies wheezing GI Denies abdominal pain, Denies melena, Denies constipation, Denies diarrhea and Denies vomiting Denies urinary frequency, Denies dysuria and Denies urinary urgency Musc Reports back pain, Denies arthralgias, Denies joint swelling, Denies numbness, Denies tingling and Reports other (left leg pain and on and off swelling) Skin/Breast Reports other (reports small bump to the back of neck) Neuro Denies Abnormal speech present, Denies behavioral changes, Denies vertigo, Denies dizziness, Reports headache(s) (ongoing, longstanding), Denies loss of vision, Denies memory loss, Denies numbness and Denies tingling Psych Denies anxiety, Denies behavioral changes, Denies depression, Denies memory loss and Denies panic attacks Endo Reports fatigue Terry/Lymph Denies easy bleeding and Denies easy bruising Aller/Immun Denies wheezing Physical exam (Primary Care) Vital Signs: Last Vital Signs Temp 97.2 F 09/26/24 09:59 Pulse 89 09/26/24 09:59 BP 104/66 09/26/24 09:59 Pulse Ox 98 09/26/24 09:59 Oxygen Delivery Method Room Air 09/26/24 09:59 BMI result Body Mass Index 31.3 Tobacco/Smoking Status: Tobacco use Status Tobacco use date assessed 02/20/24 09/26/24 10:05 Patient Tobacco Use Status Former Tobacco user 09/26/24 10:05 e-Cigarette/Vaping Use Never Used 09/26/24 10:05 PHQ-9: PHQ-9 Score PHQ-9: Total score 1 09/26/24 10:16 Thrive Assessment: Date of Thrive Assessment Date Thrive assessed 09/26/24 09/26/24 10:05 Currently or been in a relationship where the following occur: No concerns reported Const General: healthy appearing, no acute distress, alert and awake Nutritional Appearance: well nourished Orientation/consciousness: oriented to person, oriented to place and oriented to time HENSD Ears: TM's normal bilaterally General nose exam: Normal nasal mucous membranes and turbinates present Eyes Conjunctivae: conjunctivae normal Sclerae: sclerae normal Pupils: Equal, round and reactive pupils present Neck Neck: Yes no lymphadenopathy and Yes no JVD Thyroid: Thyroid normal Carotids: no bruits Neck images:  1. small, non-infected appearing epidermal cyst Resp Effort & Inspection: normal respiratory effort and not tachypneic Auscultation: no crackles, no rales, no rhonchi and no wheezes Cardio Rate: regular rate Rhythm: regular rhythm Heart sounds: S1 normal heart sound present, S2 normal heart sound present, no murmurs and normal S1 and S2 GI Inspection: Yes other (Large due to ) Palpation (GI): Soft to palpation and nontender Auscultation: normal bowel sounds General: Yes no CVA tenderness Back/Spine/Pelvis Back: no CVA tenderness Thoracic/Lumbar Spine: lumbar spinal tenderness Skin General skin exam: no rashes or lesions noted and dry skin Neuro General: oriented to person, oriented to place and oriented to time Cranial nerves: Yes Equal, round and reactive pupils present Speech: No Abnormal speech present Gait exam (Neuro): Normal gait present Motor exam (neuro): no tremor noted Extrem Right upper extremity: full ROM Left upper extremity: full ROM Right lower extremity: full ROM; no edema Left lower extremity: full ROM, lower leg Details: no tenderness and ankle Details: no tenderness; no edema Psych Mental Status: mental status grossly normal Speech and movement: Normal speech and movement present Affect: normal affect Attitude: cooperative Thought process: Normal thought process present Coding Level of Care Code Est Pt Level 3 (99186) Diagnoses Left foot pain M79.672 Epidermoid cyst of neck L72.0 and not yet delivered in second trimester Z34.92 Alpha thalassemia silent carrier D56.3 Other back pain, unspecified chronicity M54.89 Back pain location: back pain in other location Chronicity: unspecified Additional Codes CECILIA-7 Assessment Billing - CECILIA-7 Assessment Tool: CECILIA-7 Assessment 21923 ([id number]) PHQ-9 - 72155 - PHQ-9 Billing: Yes ([id number]) Time Spent (min) 37 Assessment & Plan Assessment & Plan (1) Left foot pain: Code(s): M79.672 - Pain in left foot Category: Medical Plan: The patient c/o left foot ongoing pain but reports that this is tolerable. However, she is in her 2 trimester of and has trick restrictions on what she could take for pain. Encouraged warm/cold compress and rest. (2) Epidermoid cyst of neck: Code(s): L72.0 - Epidermal cyst Category: Medical Plan: small cyst, non-infected appearing to the left posterior neck. Encouraged warm compress for now until after delivery. If the area continues or increases in size an ultrasound could be done. Patient denies pain to the area. (3) and not yet delivered in second trimester: Code(s): Z34.92 - Encounter for supervision of normal , unspecified, second trimester Category: Medical Plan: The patient reports that is she has a scheduled in December. Continue vitamins and follow up with OBGYN as scheduled. (4) Alpha thalassemia silent carrier: Code(s): D56.3 - Thalassemia minor Category: Medical Plan: The patient was found to be an alpha thalassemia silent carrier. Per note, her partner refused genetic testing due to insurance issues. (5) Back pain: Comment: Patient states she has scoliosis Code(s): M54.9 - Dorsalgia, unspecified Category: Medical Qualifiers: Back pain location: back pain in other location Chronicity: unspecified Qualified Code(s): M54.89 - Other dorsalgia Plan: Continue modified activity and apply warm compress as needed on for 20 minutes at a time Plan Continue following up with OBGYN as scheduled. Patient to follow up in six-month Orders: Orders Comprehensive [place]. Panel Fast 6 Months E66.3 - Overweight, R06.02 - Shortness of breath, R51.9 - Headache, unspecified, R53.83 - Other fatigue, R73.09 - Other abnormal glucose Lipid Panel 6 Months E66.3 - Overweight, R06.02 - Shortness of breath, R51.9 - Headache, unspecified, R53.83 - Other fatigue, R73.09 - Other abnormal glucose Complete Blood Count Auto Diff 6 Months E66.3 - Overweight, R06.02 - Shortness of breath, R51.9 - Headache, unspecified, R53.83 - Other fatigue, R73.09 - Other abnormal glucose TSH reflex Free T4 6 Months E66.3 - Overweight, R06.02 - Shortness of breath, R51.9 - Headache, unspecified, R53.83 - Other fatigue, R73.09 - Other abnormal glucose UA CC w/rflx Micro + Cult 6 Months E66.3 - Overweight, R06.02 - Shortness of breath, R51.9 - Headache, unspecified, R53.83 - Other fatigue, R73.09 - Other abnormal glucose Vitamin B12 and Folate 6 Months E66.3 - Overweight, R06.02 - Shortness of breath, R51.9 - Headache, unspecified, R53.83 - Other fatigue, R73.09 - Other abnormal glucose Vitamin D 25-OH Total 6 Months E66.3 - Overweight, R06.02 - Shortness of breath, R51.9 - Headache, unspecified, R53.83 - Other fatigue, R73.09 - Other abnormal glucose
[2024-09-26 09:59] VITALS: BP 104/66; PULSE 89; TEMP 36.2; O2SAT 98; BMI 31.3
== END 2024-09-26 10:36 | disposition home or self-care (01) ==
LOC: HO.HMCH 09:53
PROVIDERS: PCP Internal Medicine
DX: M79.672 Pain in left foot (principal); L72.0 Epidermal cyst; Z34.92 Encounter for supervision of normal pregnancy, unspecified, second trimester; D56.3 Thalassemia minor; M54.89 Other dorsalgia

== ENCOUNTER → 2024-09-26 09:52 | Outpatient (BNVA) | payer OTHER, SELFPAY | PROVIDERS: PCP Internal Medicine | DX: O99.891 Other specified diseases and conditions complicating pregnancy (principal); M79.672 Pain in left foot; M54.89 Other dorsalgia; O99.712 Diseases of the skin and subcutaneous tissue complicating pregnancy, second trimester; L72.0 Epidermal cyst; O99.012 Anemia complicating pregnancy, second trimester; D56.3 Thalassemia minor; Z3A.00 Weeks of gestation of pregnancy not specified; Z13.30 Encounter for screening examination for mental health and behavioral disorders, unspecified; Z13.39 Encounter for screening examination for other mental health and behavioral disorders | CPT/HCPCS: 96127; 99212 ==